=== PATIENT | male | born 1970 | race Two or more races ===

== ENCOUNTER → 2022-08-16 09:00 | Outpatient (BNVA) | payer OTHER, SELFPAY | PROVIDERS: PCP Registered Nurse; Visit Provider Internal Medicine Cardiovascular Disease | DX: R07.9 Chest pain, unspecified (principal); R06.09 Other forms of dyspnea; E78.5 Hyperlipidemia, unspecified | CPT/HCPCS: 93005; 99202 ==

== ENCOUNTER → 2022-08-29 08:12 | Outpatient (REF) | payer OTHER, SELFPAY ==
--- NOTE | 2022-08-29 08:15 | CA_ITS ---
Transthoracic Echocardiogram Patient (Last, First, Middle): Reggie Batista, Gender: Male Date of : 1970 Age: 52 Procedure Date: 08/29/2022 Procedure Type: Transthoracic Echocardiogram Location: OP Height: 177.8 cm Weight: 128.82 kg BSA: 2.42 m2 Heart Rate: 79 bpm BP: 145 / 85 mmHg Screen Printer Helper: MIKA Garcia MD: Manuel Martinez MD Geography Professor: Manuel Martinez MD Symptoms: R06.09 - Other forms of dyspnea Study Quality: Fair/Contrast ECG Rhythm: Sinus Conclusions: - Normal left ventricular size and systolic function. There is mildly increased left ventricular wall thickness. The visually estimated ejection fraction is between 65-70%. - Diastolic function is normal for age. - Normal right ventricular cavity size and systolic function. - There is mild dilatation of the sinuses of Valsalva measuring 4.00 cm and mild dilatation of the ascending aorta measuring 3.60 cm. Findings Procedure Information Contrast agent, definity, is being given per protocol without apparent complications. Left Ventricle Normal left ventricular size and systolic function. There is mildly increased left ventricular wall thickness. The visually estimated ejection fraction is between 65-70%. There is no evidence of regional wall motion abnormalities. Diastolic function is normal for age. Right Ventricle Normal right ventricular cavity size and systolic function. Atria The left atrium is normal in size. The right atrium is normal in size. Aortic Valve Normal aortic valve structure and function. There is no aortic valve stenosis. There is no aortic valve regurgitation. Mitral Valve The mitral valve appears normal. There is no mitral valve regurgitation. There is no mitral valve stenosis. Pulmonic Valve The pulmonic valve is likely normal. Tricuspid Valve Normal tricuspid valve structure and function. There is no tricuspid valve regurgitation. Normal right atrial pressure. There is no evidence of pulmonary hypertension. Great Vessels There is mild dilatation of the sinuses of Valsalva measuring 4.00 cm and mild dilatation of the ascending aorta measuring 3.60 cm. The visualized portions of the pulmonary artery and branches are normal. Venous The inferior vena cava is normal in size and collapses greater than 50% with inspiration. Pericardium/Pleural There is no evidence of pericardial effusion. Prior Study Comparison No prior study available for comparison. Measurements 2D Linear Measurements IVSd: 1.04 0.6-0.9/0.6-1.0 cm LVIDd: 4.75 3.9-5.3/4.2-5.9 cm LVIDd Index: 1.96 2.4-3.2/2.2-3.1 cm/m2 LVIDs: 2.86 2.0-3.6 cm LVPWd: 1.20 0.7-1.1 cm LA Diam: 3.80 2.7-3.8/3.0-4.0 cm LAIDs Index: 1.57 1.5-2.3 cm/m2 LV Mass: 243.73 67-162/88-224 g LV Mass Index: 100.72 43-95/49-115 g/m2 LVOT Diam: 2.20 3.0+(-)1.3 cm 2D Systolic Function EF 4C: 74.30 >55% EF 2C: 75.00 >55% EF BiP: 74.90 >55% Mitral Valve MV Pk E: 0.67 MV PK A: 0.73 MV Decel Time: 188.00 E/A: 0.90 E'Lateral: 10.30 E'Medial: 10.90 E/E' Med: 6.20 E/E' Lat: 6.50 PHT: 55.00 MVA PHT: 4.00 Decel [place]: 3.58 Aortic Valve AoV Pk Tehan: 1.19 AoV Mn Ethan: 0.83 AoV VTI: 0.23 AoV Pk Grad: 6.00 Aov Mn Grad: 3.00 REA Cont.VTI: 3.20 LVOT LVOT Pk Ethan: 0.99 LVOT Mn Ethan: 0.72 LVOT VTI: 0.19 LVOT Pk Grad: 4.00 LVOT Mn Grad: 2.00 LVOT Diam: 2.20 LVOT Area: 3.80 Diastolic Function MV Pk E: 0.67 MV Pk A: 0.73 E/A: 0.90 E'Medial: 10.90 E/E' Med: 6.20 E' Laterial: 10.30 E/E' Lat: 6.50 Right Ventricle TAPSE (mm): 19.80 TVS' Ethan: 14.70 Great Vessels Aorta Sinus of Valsalva: 4.00 2.0-3.5 cm Ao Asc: 3.60 2.1-3.4 cm Pulmonary Valve PV Pk Ethan: 1.09 Peak PV Grad: 5.00 Updated in Other Vendor System with Status of Final Manuel Martinez MD electronically signed on 08/31/2022 10:51:34 AM with status of Final
--- NOTE | 2022-08-29 08:15 | CA_ITS ---
Acquisition Time: 2022-08-29 09:53:20 Total Exercise Time: 00:06:36 Test Indications: SOB Medications: SEE H Protocol: JHONY Max HR: 164 BPM 97% of Pred: 168 BPM Max BP: 208/072 mmHG Max Work Load: 7.9 METS Exercise stress test with exercise 6 min 36 sec of Jhony protocol, achieving 96% MPHR, with moderate sob, no chest discomfort, with isolated PVCs and tow ventricular cuplets noted in stage 3 and early recovery, with hypertensive response to exercise with max BP 208/72, without EKG changes meeting criteria for ischemia. In recovery his sob resolved and BP returned to near baseline 144/78. Test reviewed with Dr Martinez. Referred By: Manuel Martinez Overread By: JESSICA TATE
== END ==
LOC: HO.CARD 08:12
PROVIDERS: Visit Provider Internal Medicine Cardiovascular Disease
DX: R07.9 Chest pain, unspecified (principal); R06.09 Other forms of dyspnea
CPT/HCPCS: 93017; 93306; Q9957

== ENCOUNTER 2022-11-29 14:53 | Outpatient (AMB) | payer OTHER, SELFPAY ==
--- NOTE | 2022-11-29 14:59 | MHC.OFFVIS ---
Intake Vital Signs 11/29/22 15:00 Height 5 ft 10 in Weight 282 lb 3.067 oz BMI 40.5 BP 124/84 Blood Pressure Location Lt brachial Position Sitting Pulse 93 Pulse Source Pulse Oximeter Intake Visit Reasons: f/up testing Intake Note: Follow up after recent testing. Senior Strategy Manager Required: No Accompanied by: Self / Same As Patient Allergies aspirin Adverse Reaction (Severe, Verified 11/29/22 15:01) Hives cortisone Adverse Reaction (Severe, Verified 11/29/22 15:01) Hives Medication List - Last Reconciled 11/29/22 by Manuel Martinez MD atorvastatin 40 mg PO BEDTIME empagliflozin (Jardiance) 25 mg PO QAM glipizide ER 10 mg PO QAM lisinopril-hydrochlorothiazide 20-25 mg 1 tab PO DAILY metformin ER 1,000 mg PO BID omega-3 acid ethyl esters (Lovaza) 1 cap PO DAILY HPI HPI Comments History of Present Illness Details 52-year-old gentleman who is here for hypertriglyceridemia. He was given rosuvastatin and developed vertigo. He is saying he did not have any viral illness before the vertigo and clearly he stop the statin and started feeling better. His triglyceride levels are 1126. LDL could not be calculated because of elevated triglycerides. He also has dyspnea on exertion and chest discomfort ongoing for some time. He is saying that this happened after he developed COVID-19 infection. He is saying when he is doing activities he feels dull pressure-like feeling in his chest. He does have history of asthma. He also gets shortness of breath with activities. He is diabetic, has hypertension and hyperlipidemia. He said at 1 stage he was told that he has an enlarged heart due to elevated blood pressures. He is saying that this was diagnosed based on echocardiography approximately 4 years ago. At that time was not on any medications but has been on medications now with controlled blood pressures. Family history positive for coronary disease and cardiomyopathy. 11/29/22: He is here for follow-up. He has started exercising on treadmill and has been doing well. He had stress testing done where he had hypertensive response to exercise. He has known history of hypertension has been taking lisinopril hydrochlorothiazide 20-25 mg daily. He also has hypertriglyceridemia which is likely genetic and was started on omega-3 acid and has been on atorvastatin 40 mg daily. He has not had any fasting lipid panel recently. He has echocardiogram is shown mild dilation of ascending aorta. [facility] Surgical History No pertinent past surgical history Family History Mother Parkinsons Vascular disease Emphysema lung Father Gastric polyps Brother Hypertension Hyperglycemia Brother Diabetes Social History Alcohol intake: never Patient Tobacco Use Status: Former Tobacco user Quit Date: 2002 Years Smoked: 10 +/- Review of Systems Const Denies weakness ENT Denies dizziness Card Denies chest pain, Denies chest pain with activity, Denies syncope, Denies rapid heart rate, Denies pedal edema, Denies edema, Denies leg edema, Denies lightheadedness, Denies palpitations, Denies dyspnea, Denies dyspnea on exertion and Denies orthopnea Resp Denies cough, Denies dyspnea and Denies dyspnea on exertion GI Denies hematochezia and Denies change in stool character Musc Denies abnormal gait, Denies muscle cramps, Denies muscle weakness, Denies numbness, Denies radiating pain into limb and Denies tingling Neuro Denies abnormal gait, Denies dizziness, Denies syncope, Denies numbness, Denies tingling and Denies weakness Endo Denies palpitations Physical Exam Vital Signs: Last Vital Signs Pulse 93 11/29/22 15:00 BP 124/84 11/29/22 15:00 BMI result Body Mass Index 40.5 GENERAL APPEARANCE: in no acute distress, pleasant. NECK: no carotid bruit, no jugular venous distention. SKIN: no suspicious lesions, warm and dry. HEART: no murmurs, regular rate and rhythm. LUNGS: clear to auscultation bilaterally. ABDOMEN: soft, nontender. EXTREMITIES: no edema. PERIPHERAL PULSES: equal. NEUROLOGIC: No gross deficits, AAO X 3 Assessment & Plan Assessment & Plan (1) Essential hypertension: Code(s): I10 - Essential (primary) hypertension (2) Hyperlipidemia: Code(s): E78.5 - Hyperlipidemia, unspecified (3) Mild dilation of ascending aorta: Code(s): I77.810 - Thoracic aortic ectasia Plan Pleasant 52-year-old gentleman who is here for follow-up. He has background history of hypertension and hyperlipidemia. He was experiencing some chest discomfort underwent stress testing. He had hypertensive response to exercise during stress test. Did not have any chest discomfort or EKG changes. His blood pressure currently appears to be okay. I have advised him start low-dose beta-darlin and will start carvedilol 3.125 mg twice a day. He has mild dilation of ascending aorta. This is commonly seen with tobacco abuse, hypertension and hyperlipidemia. He has hyperlipidemia and currently is on atorvastatin and omega-3 fatty acids. We will check a fasting lipid panel. He will have periodic monitoring of the ascending aorta to make sure it is not enlarging further. Thank you for allowing me to participate in the care of your patient. Please feel free to contact me if you have any questions. Orders: Orders Lipid Panel Today E78.5 - Hyperlipidemia, unspecified Medications: New carvedilol must administer with a meal/food 3.125 mg PO BID 90 tabs 3RF I10 - Essential (primary) hypertension Coding Level of Care Code Est Pt Level 4 (44418) Diagnoses Essential hypertension I10 Hyperlipidemia E78.5 Mild dilation of ascending aorta I77.810
[2022-11-29 15:00] VITALS: BP 124/84; PULSE 93; BMI 40.5
== END 2022-11-29 16:00 | disposition home or self-care (01) ==
PROVIDERS: Visit Provider Internal Medicine Cardiovascular Disease
DX: I10 Essential (primary) hypertension (principal); E78.5 Hyperlipidemia, unspecified; I77.810 Thoracic aortic ectasia
CPT/HCPCS: 99214

== ENCOUNTER → 2022-11-29 14:53 | Outpatient (BNVA) | payer OTHER, SELFPAY | PROVIDERS: Visit Provider Internal Medicine Cardiovascular Disease | DX: I77.810 Thoracic aortic ectasia (principal); I10 Essential (primary) hypertension; E78.5 Hyperlipidemia, unspecified | CPT/HCPCS: 99212 ==

== ENCOUNTER 2023-02-19 10:02 | Emergency (ER) | payer OTHER, SELFPAY ==
[2023-02-19 10:06] VITALS: BP 145/83; PULSE 76; RESP 20; TEMP 35.9; O2SAT 97; BMI 40.8
--- NOTE | 2023-02-19 10:47 | ECG_ITS ---
Test Reason : dizziness Blood Pressure : / mmHG Vent. Rate : 072 BPM Atrial Rate : 072 BPM P-R Int : 156 ms QRS Dur : 082 ms QT Int : 374 ms P-R-T Axes : 045 -12 041 degrees QTc Int : 409 ms Normal sinus rhythm Possible Left atrial enlargement Borderline ECG No previous ECGs available Referred By: Generic ED Physician Electronically Signed By:REECE GREGORY MD
[2023-02-19 11:37] LABS: MANUAL DIFF FLAG NO
--- NOTE | 2023-02-19 11:37 | ED.NAVMDI ---
HPI - Nausea/Vomiting/Diarrhea General Chief complaint: Nausea/Vomiting/Diarrhea Stated complaint: l side pain Time Seen by Provider: 02/19/23 11:22 Source: patient and family Mode of arrival: ambulatory Limitations: no limitations History of Present Illness HPI Narrative: 53-year-old male came in for evaluation of nausea, vomiting, and diarrhea. Symptoms started 3 days ago after eating some food at home (no other family member ate from the food), symptoms started as nonbloody watery diarrhea, feeling nauseous but no vomiting, patient also been having a diffuse abdominal cramps, no other sick contacts, no recent travel, no fever, no chills, no dysuria, no frequency urination, no blood in the stool or the urine. No history of intra-abdominal surgery. Related Data Home Medications Medication Instructions Recorded Confirmed empagliflozin 25 mg tablet 25 mg PO QAM diabetes mellitus 08/16/22 11/29/22 (Jardiance) glipizide 10 mg tablet, extended 10 mg PO QAM diabetes mellitus 08/16/22 11/29/22 release 24 hr lisinopril 20 1 tab PO DAILY blood pressure 08/16/22 11/29/22 mg-hydrochlorothiazide 25 mg tablet metformin 500 mg tablet,extended 1,000 mg PO BID 08/16/22 11/29/22 release 24 hr Previous Rx's Medication Instructions Recorded atorvastatin 40 mg tablet 40 mg PO BEDTIME #30 tabs 08/16/22 omega-3 acid ethyl esters 1 gram 1 cap PO DAILY #60 caps 08/16/22 capsule (Lovaza) carvedilol 3.125 mg tablet 3.125 mg PO BID #90 tabs 11/29/22 Allergies Allergy/AdvReac Type Severity Reaction Status Date / Time aspirin AdvReac Severe Hives Verified 11/29/22 15:01 cortisone AdvReac Severe Hives Verified 11/29/22 15:01 Review of Systems Review of Systems: All other systems are reviewed and are negative Constitutional: Reports as per HPI and Reports no additional constitutional complaints Eyes: Reports as per HPI and Reports no additional eye complaints Reports system reviewed and no additional complaints, except as documented Cardiovascular: Reports as per HPI and Reports no additional cardiovascular complaints Respiratory: Reports as per HPI and Reports no additional respiratory complaints Gastrointestinal: Reports as per HPI and Reports no additional gastrointestinal complaints Genitourinary: Reports no additional female genitourinary complaints Musculoskeletal: Reports no additional musculoskeletal complaints Skin/Breast: Reports system reviewed and no additional complaints, except as docu Psychiatric: Reports no additional psychiatric complaints Endocrine: Reports no additional endocrine complaints Hematologic/Lymphatic: Reports no additional hematologic/lymphatic complaints Allergic/Immunologic: Reports no additional allergic/immunologic complaints Reports system reviewed and no additional complaints, except as documented and Reports Abnormal speech present [facility] Past Medical History Surgical History No pertinent past surgical history Family History Family History Mother Parkinsons Vascular disease Emphysema lung Father Gastric polyps Brother Hypertension Hyperglycemia Brother Diabetes Social History Social History Alcohol intake: never Patient Tobacco Use Status: Former Tobacco user Quit Date: 2002 Smoked: 10 +/- Advance Directives: No Advance Directives Information Provided: Yes Physical Exam Vital Signs: Vital Signs: Last Vital Signs Temp 96.6 F L 02/19/23 10:06 Pulse 80 02/19/23 11:50 Resp 18 02/19/23 11:50 BP 130/80 02/19/23 11:40 Pulse Ox 97 02/19/23 11:50 O2 Del Method Room Air 02/19/23 11:50 BMI result Body Mass Index 40.8 Vital signs have been reviewed and appear to be correct. Blood pressure elevated. Heart rate normal. Respiratory rate normal. Temperature normal. Oxygen saturation normal. Appearance: Alert. Oriented X3. No acute distress. Head: Normal external exam. Normocephalic. Atraumatic. No Nixon signs noted. No raccoon eyes noted Eyes: PERRLA. EOMI. Conjunctiva and sclera normal. Eyelids normal. ENT: TM's Normal. Pharynx normal. Uvula midline. Moist mucous membranes. No trismus noted. No drooling noted. No muffled voice noted. Neck: Normal inspection. Neck supple. FROM. No adenopathy. Thyroid Normal. No meningeal signs. No neck mass noted. CVS: Normal heart rate and rhythm. Heart sound normal. No murmurs noted. Pulses normal throughout. Respiratory: No respiratory distress. Painless inspiration. Breath sounds normal. No wheezes/rales/rhonchi noted. Chest nontender. No accessory muscle usage noted or decreased air movement noted. Abdomen: Soft and nontender. Bowel sounds normal in all 4 quadrants. No distention noted. No organomegaly noted. No visible injury noted. Back: No CVA tenderness. Full range of motion noted. Skin: Skin warm and dry. Normal skin color. Normal skin turgor. No rashes/lesions/lacerations noted. Extremities: No lower extremity edema. Extremities exhibit normal range of motion. Extremities nontender. Neuro: Oriented X 3. Cranial nerve exam: II-XII are grossly intact No motor deficit. No sensory deficit. Reflexes normal. Course Reevaluation(s) Reevaluation #1: Patient feels better with improvement of most of his symptoms, able to tolerate p.o. intake in the ED, no nausea, no vomiting, improvement of the left-sided abdominal pain. Labs are unremarkable, clinical exam and history is consistent with gastroenteritis. Patient was instructed to drink plenty of fluid start clear diet and advance as tolerated. Time: 13:39 Medications Administered Discontinued Medications Generic Name Dose Route Start Last Admin Trade Name Freq PRN Reason Stop Dose Admin Famotidine 20 mg 02/19/23 11:36 02/19/23 11:49 Famotidine/Pf 20 Mg/2 Ml Vial IVPUSH 02/19/23 11:37 20 mg ONCE ONE Administration Sodium Chloride 1,000 mls @ 999 mls/hr 02/19/23 11:36 02/19/23 11:50 Ns IV 02/19/23 12:36 999 mls/hr .Q1H1M ONE Administration Loperamide HCl 2 mg 02/19/23 11:37 02/19/23 11:48 Loperamide Hcl 2 Mg Capsule PO 02/19/23 11:38 2 mg ONCE ONE Administration Medical Decision Making Differential Diagnosis Differential Diagnoses: The differential diagnosis associated with the presentation includes (Severe anemia, electrolyte abnormality, UTI, food poisoning, gastroenteritis, colitis.) Admission/Observation Consideration of admission/observation: Escalation of care including admission/observation considered Lab Data MDM Lab Attestation statement: I reviewed the patient's lab results. 02/19/23 11:32 02/19/23 11:32 Labs: Lab Results 02/19/23 Range/Units 11:32 WBC 9.3 (4.8-10.8) X10*3/uL RBC 6.35 H (4.60-5.80) X10*6/uL Hgb 15.7 (14.0-18.0) g/dl Hct 49.6 (42.0-52.0) % MCV 78.1 L (80.0-98.0) fL MCH 24.7 L (27.0-33.0) pg MCHC 31.7 (31.0-36.0) g/dl RDW 17.2 H (11.0-16.0) % Plt Count 244 (160-400) X10*3/uL MPV 9.8 (9.4-12.4) fL Immature Gran % (Auto) 0.6 H (0.0-0.4) % Neut % (Auto) 74.9 H (45-73) % Lymph % (Auto) 18.6 L (20-40) % [place] % (Auto) 4.2 (2-11) % Eos % (Auto) 1.2 (0-4) % Baso % (Auto) 0.5 (0-2) % Lymph # (Auto) 1.7 (1.2-4.9) X10*3/uL [place] # (Auto) 0.4 (0.1-1.2) X10*3/uL Eos # (Auto) 0.1 (0.0-0.4) X10*3/uL Baso # (Auto) 0.1 (0.0-0.2) X10*3/uL Abs Immat Gran (auto) 0.06 H (0.00-0.03) X10*3/uL Absolute Neuts (auto) 7.0 (2.0-8.3) x10*3/uL Absolute Nucleated RBC 0.000 (0.0-0.012) X10*3/uL Nucleated RBC % (auto) 0.0 (0.0-0.2) /100WBC Sodium 134 L (135-145) mmol/L Potassium 4.0 (3.3-5.1) mmol/L Chloride 98 (96-108) mmol/L Carbon Dioxide 23 (22-29) mmol/L Anion Gap 17 (12-20) BUN 17 H (9-16) mg/dL Creatinine 1.01 (0.5-1.4) mg/dL Estim Creat Clear Calc 114.1 Estimated GFR > 60 Random Glucose 170 H (60-115) mg/dL Calcium 10.0 (8.4-10.2) mg/dL Total Bilirubin 1.2 H (0.0-1.0) mg/dL Direct Bilirubin 0.4 (0.0-0.5) mg/dL AST 24 (5-37) U/L ALT 52 H (0-40) U/L Alkaline Phosphatase 56 (39-117) U/L Total Protein 8.5 H (6.5-8.0) g/dL Albumin 4.7 (3.5-5.0) g/dL Lipase 28 (8-78) U/L Urine Color Yellow Urine Appearance Clear Urine pH 7.0 (5.0-9.0) Ur Specific [place] >= 1.030 H (1.005-1.025) Urine Protein Negative (Neg-Trace) mg/dL Urine Glucose (UA) >=1000 H (Negative) mg/dL Urine Ketones Trace (Negative) mg/dL Urine Blood Negative (Negative) Urine Nitrite Negative (Negative) Ur Leukocyte Esterase Negative (Negative) Urine RBC 0-2 (0-2) /HPF Urine WBC 0-5 (0-5) /HPF Ur Squamous Epith Cells 0-2 (0-2) /HPF Urine Bacteria None Seen (None Seen) Hyaline Casts 0-2 (0-2) /LPF Discharge Plan Discharge Clinical Impression: Gastroenteritis Patient Disposition: Home, Self-Care Instructions: Gastroenteritis (ED) Additional Instructions: Drink plenty of fluids, start with clear diet and advance as tolerated, seek immediate medical attention for fever, chills, worsening of pain or vomiting. Follow-up with your primary doctor in 2-3 days. Prescriptions: No Action lisinopril-hydrochlorothiazide 20-25 mg tablet 1 tab PO DAILY glipizide 10 mg tablet extended release 24hr 10 mg PO QAM metformin 500 mg tablet extended release 24 hr 1,000 mg PO BID Jardiance 25 mg tablet 25 mg PO QAM atorvastatin 40 mg tablet 40 mg PO BEDTIME Qty: 30 3RF omega-3 acid ethyl esters [Lovaza] 1 gram capsule 1 cap PO DAILY Qty: 60 3RF carvedilol 3.125 mg tablet 3.125 mg PO BID Qty: 90 3RF Rx Instructions: must administer with a meal/food
[2023-02-19 11:38] VITALS: BP 123/76; PULSE 70
[2023-02-19 11:39] VITALS: BP 126/76; PULSE 77
[2023-02-19 11:40] VITALS: BP 130/80; PULSE 80
[2023-02-19 11:44] LABS: Appearance Urine Clear; Color Urine Yellow; Glucose Urine UA >=1000 mg/dL (Negative); Leukocyte Esterase Urine Negative (Negative); Nitrite Urine Negative (Negative); Specific Gravity - Urine >= 1.030 (1.005-1.025); UMIC TRIGGER UACC YES; Urine Blood Negative (Negative); Urine Ketones Trace mg/dL (Negative); Urine Protein Negative (Neg-Trace)
[2023-02-19] MEDS: Loperamide HCl 2 MG CAPSULE PO (11:48)
[2023-02-19 11:49] LABS: Basophils Absolute Auto 0.1 X10*3/uL (0.0-0.2); Basophils Percent Auto 0.5 % (0-2); Eosinophils Absolute Auto 0.1 X10*3/uL (0.0-0.4); Eosinophils Percent Auto 1.2 % (0-4); Hematocrit 49.6 % (42.0-52.0); Hemoglobin 15.7 g/dl (14.0-18.0); Imm Gran Abs Auto 0.06 X10*3/uL (0.00-0.03); Imm Gran Pct Auto 0.6 % (0.0-0.4); Lymphocytes Absolute Auto 1.7 X10*3/uL (1.2-4.9); Lymphocytes Percent Auto 18.6 % (20-40); Mean Corpuscular HGB Conc 31.7 g/dl (31.0-36.0); Mean Corpuscular Hemoglobin 24.7 pg (27.0-33.0); Mean Corpuscular Volume 78.1 fL (80.0-98.0); Mean Platelet Volume 9.8 fL (9.4-12.4); Monocytes Absolute Auto 0.4 X10*3/uL (0.1-1.2); Monocytes Percent Auto 4.2 % (2-11); Neutrophils Percent Auto 74.9 % (45-73); Platelet Count 244 X10*3/uL (160-400); Red Blood Count 6.35 X10*6/uL (4.60-5.80); Red Cell Distribution Width 17.2 % (11.0-16.0); White Blood Count 9.3 X10*3/uL (4.8-10.8)
[2023-02-19] MEDS: Famotidine/PF 20 MG/2 ML VIAL IVPUSH (11:49)
[2023-02-19 11:50] VITALS: PULSE 80; RESP 18; O2SAT 97
[2023-02-19] MEDS: 0.9 % Sodium Chloride 1,000 ML 999 ML IV (11:50)
[2023-02-19 12:00] LABS: Alanine Aminotransferase 52 U/L (0-40); Albumin Level 4.7 g/dL (3.5-5.0); Alkaline Phosphatase 56 U/L (39-117); Anion Gap 17 (12-20); Aspartate Amino Transferase 24 U/L (5-37); Bilirubin Direct 0.4 mg/dL (0.0-0.5); Bilirubin Total 1.2 mg/dL (0.0-1.0); Blood Urea Nitrogen 17 mg/dL (9-16); Carbon Dioxide 23 mmol/L (22-29); Chloride 98 mmol/L (96-108); Creatinine Clr Calc Pharmacy 114.1; Estimated Glomerular Filt Rate > 60; Glucose Random 170 mg/dL (60-115); Lipase 28 U/L (8-78); Sodium 134 mmol/L (135-145); Total Protein 8.5 g/dL (6.5-8.0)
[2023-02-19 12:19] LABS: Bacteria Urine None Seen (None Seen); Hyaline Casts Urine 0-2 /LPF (0-2); RBC Urine 0-2 /HPF (0-2); Squamous Epithelial Cell Urine 0-2 /HPF (0-2); WBC Urine 0-5 /HPF (0-5)
[2023-02-19 14:02] VITALS: BP 145/76; PULSE 77; RESP 19; O2SAT 98
== END 2023-02-19 14:03 | disposition home or self-care (01) ==
PROVIDERS: Emergency Provider Emergency Medicine
DX: K52.9 Noninfective gastroenteritis and colitis, unspecified (principal); R11.2 Nausea with vomiting, unspecified; R42 Dizziness and giddiness; Z79.899 Other long term (current) drug therapy
CPT/HCPCS: 36415; 80053; 80076; 81001; 82248; 83690; 85025; 93005; 96374; 99284

== ENCOUNTER 2023-04-04 14:42 | Outpatient (AMB) | payer OTHER, SELFPAY ==
--- NOTE | 2023-04-04 14:50 | A.OFFVIS_ITS ---
Intake Vital Signs 04/04/23 14:51 Height 5 ft 10 in Weight 286 lb 9.615 oz BMI 41.1 BP 140/80 H Blood Pressure Location Lt brachial Position Sitting Pulse 85 Pulse Source Pulse Oximeter Intake Visit Reasons: 4 mth fu after lipids Intake Note: 4 month fu/ patients feels fine. Accompanied by: Self / Same As Patient Allergies aspirin Adverse Reaction (Severe, Verified 04/04/23 14:58) Hives cortisone Adverse Reaction (Severe, Verified 04/04/23 14:58) Hives Medication List - Last Reconciled 04/04/23 by Manuel Martinez MD atorvastatin 40 mg PO BEDTIME 90 days carvedilol 3.125 mg PO BID empagliflozin (Jardiance) 25 mg PO QAM glipizide ER 10 mg PO QAM lisinopril-hydrochlorothiazide 20-25 mg 1 tab PO DAILY metformin ER 1,000 mg PO BID omega-3 acid ethyl esters (Lovaza) 1 cap PO DAILY HPI HPI Comments History of Present Illness0 Details 53-year-old gentleman who is here for hy pertriglyceridemia. He was given rosuvastatin and developed vertigo. He is saying he did not have any viral illness before the vertigo and clearly he stop the statin and started feeling better. His triglyceride levels are 1126. LDL could not be calculated because of elevated triglycerides. He also has dyspnea on exertion and chest discomfort ongoing for some time. He is saying that this happened after he developed COVID-19 infection. He is saying when he is doing activities he feels dull pressure-like feeling in his chest. He does have history of asthma. He also gets shortness of breath with activities. He is diabetic, has hypertension and hyperlipidemia. He said at 1 stage he was told that he has an enlarged heart due to elevated blood pressures. He is saying that this was diagnosed based on echocardiography approximately 4 years ago. At that time was not on any medications but has been on medications now with controlled blood pressures. Family history positive for coronary disease and cardiomyopathy. 11/29/22: He is here for follow-up. He has started exercising on treadmill and has been doing well. He had stress testing done where he had hypertensive response to exercise. He has known history of hypertension has been taking lisinopril hydrochlorothiazide 20-25 mg daily. He also has hypertriglyceridemia which is likely genetic and was started on omega-3 acid and has been on atorvastatin 40 mg daily. He has not had any fasting lipid panel recently. He has echocardiogram is shown mild dilation of ascending aorta. 04/04/2023: He returns for follow-up. Nhung muniz has been doing well. No chest pain or shortness of breath. Blood pressure is mildly elevated. He has been taking medication regularly. On last visit we referred him for cholesterol testing but he has not done that because he was sick. [facility] Surgical History No pertinent past surgical history Family History Mother Parkinsons Vascular disease Emphysema lung Father Gastric polyps Brother Hypertension Hyperglycemia Brother Diabetes Social History Alcohol intake: never Patient Tobacco Use Status: Former Tobacco user Quit Date: 2002 Years Smoked: 10 +/- Review of Systems Const Reports chills, Reports fatigue, Reports fever(s), Reports frequent falls, Reports weakness, Reports weight gain and Reports weight loss ENT Reports dizziness Card Reports chest pain, Reports leg edema, Reports lightheadedness, Reports palpitations, Reports dyspnea and Reports dyspnea on exertion Resp Reports cough, Reports dyspnea and Reports dyspnea on exertion GI Reports hematochezia Musc Reports abnormal gait, Reports muscle weakness, Reports numbness, Reports radiating pain into limb and Reports tingling Neuro Reports abnormal gait, Reports dizziness, Reports frequent falls, Reports numbness, Reports tingling and Reports weakness Endo Reports fatigue and Reports palpitations Physical Exam Vital Signs: Last Vital Signs Pulse 85 04/04/23 14:51 BP 140/80 H 04/04/23 14:51 BMI result Body Mass Index 41.1 GENERAL APPEARANCE: in no acute distress, pleasant. NECK: no carotid bruit, no jugular venous distention. SKIN: no suspicious lesions, warm and dry. HEART: no murmurs, regular rate and rhythm. LUNGS: clear to auscultation bilaterally. ABDOMEN: soft, nontender. EXTREMITIES: no edema. PERIPHERAL PULSES: equal. NEUROLOGIC: No gross deficits, AAO X 3 Assessment & Plan Assessment & Plan (1) Mild dilation of ascending aorta: Code(s): I77.810 - Thoracic aortic ectasia (2) Essential hypertension: Code(s): I10 - Essential (primary) hypertension (3) Hyperlipidemia: Code(s): E78.5 - Hyperlipidemia, unspecified Plan Pleasant 53-year-old gentleman is here for follow-up. He has diabetes and is currently taking metformin, glipizide and empagliflozin. Is on atorvastatin 40 mg daily as well as omega-3 fatty acids. He was advised to do a fasting lipid panel which she has not done and will be getting it done in the next few days. Blood pressure is elevated and increasing the carvedilol to 6.25 mg twice a day. He is already taking lisinopril and hydrochlorothiazide combination 20-25 mg. He will see us back in 4 months. Thank you for allowing me to participate in the care of your patient. Please feel free to contact me if you have any questions. Medications: New carvedilol must administer with a meal/food 6.25 mg PO BID 120 tabs 3RF Discontinued carvedilol must administer with a meal/food Discontinued Reason: None 3.125 mg PO BID 90 tabs 3RF I10 - Essential (primary) hypertension Coding Level of Care Code Est Pt Level 4 (85508) Diagnoses Mild dilation of ascending aorta I77.810 Essential hypertension I10 Hyperlipidemia E78.5
[2023-04-04 14:51] VITALS: BP 140/80; PULSE 85; BMI 41.1
== END 2023-04-04 15:11 | disposition home or self-care (01) ==
PROVIDERS: PCP Registered Nurse; Visit Provider Internal Medicine Cardiovascular Disease
DX: I77.810 Thoracic aortic ectasia (principal); I10 Essential (primary) hypertension; E78.5 Hyperlipidemia, unspecified
CPT/HCPCS: 99214

== ENCOUNTER → 2023-04-04 14:42 | Outpatient (BNVA) | payer OTHER, SELFPAY | PROVIDERS: PCP Registered Nurse; Visit Provider Internal Medicine Cardiovascular Disease | DX: I77.810 Thoracic aortic ectasia (principal); I10 Essential (primary) hypertension; E78.5 Hyperlipidemia, unspecified | CPT/HCPCS: 99212 ==

== ENCOUNTER 2023-04-24 07:57 | Outpatient (REF) | payer OTHER, SELFPAY ==
[2023-04-24 09:05] LABS: Cholesterol 148 mg/dL (<200); HDL Cholesterol 26 mg/dL (>40); Triglycerides 474 mg/dL (<150)
== END 2023-04-24 07:58 | disposition home or self-care (01) ==
LOC: HO.LAB 07:57
PROVIDERS: PCP Registered Nurse; Visit Provider Internal Medicine Cardiovascular Disease
DX: E78.5 Hyperlipidemia, unspecified (principal)
CPT/HCPCS: 36415; 80061

== ENCOUNTER 2023-09-27 09:49 | Outpatient (REF) | payer OTHER, SELFPAY ==
[2023-09-27 11:15] LABS: Alanine Aminotransferase 41 U/L (0-40); Albumin Level 4.4 g/dL (3.5-5.0); Alkaline Phosphatase 63 U/L (39-117); Anion Gap 15 (12-20); Aspartate Amino Transferase 26 U/L (5-37); Bilirubin Total 0.9 mg/dL (0.0-1.0); Blood Urea Nitrogen 17 mg/dL (9-16); Calcium 9.4 mg/dL (8.4-10.2); Carbon Dioxide 28 mmol/L (22-29); Chloride 98 mmol/L (96-108); Estimated Glomerular Filt Rate > 60; Glucose Random 183 mg/dL (60-115); Potassium 4.2 mmol/L (3.3-5.1); Sodium 137 mmol/L (135-145); Total Protein 7.8 g/dL (6.5-8.0)
[2023-09-27 11:33] LABS: Prostate Specific Antigen Scr 1.13 ng/mL (<0.05-4.0)
[2023-09-28 20:48] LABS: LDL Cholesterol Direct 40 mg/dL (<100)
== END 2023-09-27 09:50 | disposition home or self-care (01) ==
LOC: HO.LAB 09:49
PROVIDERS: Absent Provider Internal Medicine Cardiovascular Disease; PCP Registered Nurse; Visit Provider Registered Nurse
DX: Z00.00 Encounter for general adult medical examination without abnormal findings (principal); E78.5 Hyperlipidemia, unspecified
CPT/HCPCS: 36415; 80053; 83721; 84153

== ENCOUNTER 2023-10-03 09:27 | Outpatient (AMB) | payer OTHER, SELFPAY ==
[2023-10-03 09:31] VITALS: BP 130/70; PULSE 85; O2SAT 97; BMI 40.8
--- NOTE | 2023-10-03 09:31 | MHC.OFFVIS ---
Vital Signs 10/03/23 09:31 Height 5 ft 10 in Weight 284 lb 6.341 oz BMI 40.8 BP 130/70 Blood Pressure Location Lt brachial Position Sitting Pulse 85 Pulse Source Pulse Oximeter Pulse Oximetry (%) 97 Intake Visit Reasons: 4 mth f/up Senior Account Manager Required: No Accompanied by: Self / Same As Patient Allergies aspirin Adverse Reaction (Severe, Verified 04/04/23 14:58) Hives cortisone Adverse Reaction (Severe, Verified 04/04/23 14:58) Hives Medication List - Last Reconciled 10/03/23 by Manuel Martinez MD atorvastatin 40 mg PO BEDTIME 90 days carvedilol 6.25 mg PO BID empagliflozin (Jardiance) 25 mg PO QAM glipizide ER 10 mg PO QAM lisinopril-hydrochlorothiazide 20-25 mg 1 tab PO DAILY metformin ER 1,000 mg PO BID omega-3 acid ethyl esters 1 cap PO DAILY HPI Comments Details: 53-year-old gentleman who is here for hypertriglyceridemia. He was given rosuvastatin and developed vertigo. He is saying he did not have any viral illness before the vertigo and clearly he stop the statin and started feeling better. His triglyceride levels are 1126. LDL could not be calculated because of elevated triglycerides. He also has dyspnea on exertion and chest discomfort ongoing for some time. He is saying that this happened after he developed COVID-19 infection. He is saying when he is doing activities he feels dull pressure-like feeling in his chest. He does have history of asthma. He also gets shortness of breath with activities. He is diabetic, has hypertension and hyperlipidemia. He said at 1 stage he was told that he has an enlarged heart due to elevated blood pressures. He is saying that this was diagnosed based on echocardiography approximately 4 years ago. At that time was not on any medications but has been on medications now with controlled blood pressures. Family history positive for coronary disease and cardiomyopathy. 11/29/22: He is here for follow-up. He has started exercising on treadmill and has been doing well. He had stress testing done where he had hypertensive response to exercise. He has known history of hypertension has been taking lisinopril hydrochlorothiazide 20-25 mg daily. He also has hypertriglyceridemia which is likely genetic and was started on omega-3 acid and has been on atorvastatin 40 mg daily. He has not had any fasting lipid panel recently. He has echocardiogram is shown mild dilation of ascending aorta. 04/04/2023: He returns for follow-up. He has been doing well. No chest pain or shortness of breath. Blood pressure is mildly elevated. He has been taking medication regularly. On last visit we referred him for cholesterol testing but he has not done that because he was sick. 10/03/23: He is here for follow-up. He has been doing well. He said he has changed his job and is under less stress and is sleeping better. Blood pressure is better controlled. Denying any chest discomfort shortness of breath. His LDL cholesterol is 40. His triglycerides were elevated at 474. He has been walking. I have advised him to cut back on sugars in his diet which she already is planning to. [facility] Surgical History No pertinent past surgical history Family History Mother Parkinsons Vascular disease Emphysema lung Father Gastric polyps Brother Hypertension Hyperglycemia Brother Diabetes Social History Alcohol intake: never Patient Tobacco Use Status: Former Tobacco user Quit Date: 2002 Years Smoked: 10 +/- Physical Exam Vital Signs: Last Vital Signs Pulse 85 10/03/23 09:31 BP 130/70 10/03/23 09:31 Pulse Ox 97 10/03/23 09:31 BMI result Body Mass Index 40.8 GENERAL APPEARANCE: in no acute distress, pleasant. NECK: no carotid bruit, no jugular venous distention. SKIN: no suspicious lesions, warm and dry. HEART: no murmurs, regular rate and rhythm. LUNGS: clear to auscultation bilaterally. ABDOMEN: soft, nontender. EXTREMITIES: no edema. PERIPHERAL PULSES: equal. NEUROLOGIC: No gross deficits, AAO X 3 Assessment & Plan Assessment & Plan (1) Mild dilation of ascending aorta: Code(s): I77.810 - Thoracic aortic ectasia Category: Medical (2) Essential hypertension: Code(s): I10 - Essential (primary) hypertension Category: Medical (3) Hyperlipidemia: Code(s): E78.5 - Hyperlipidemia, unspecified Category: Medical Plan Pleasant 53-year-old gentleman is here for follow-up. He has diabetes and is currently taking metformin, glipizide and empagliflozin. He is on atorvastatin 40 mg daily as well as omega-3 fatty acids. His LDL cholesterol is 40. Triglycerides were elevated at 474. He is changing his diet and trying to exercise more regularly. We will repeat a fasting lipid panel on him in 2 months. He will see us back in 4 months. Thank you for allowing me to participate in the care of your patient. Please feel free to contact me if you have any questions. Orders: Orders Lipid Panel Today E78.5 - Hyperlipidemia, unspecified Coding Level of Care Code Est Pt Level 4 (96231) Diagnoses Mild dilation of ascending aorta I77.810 Essential hypertension I10 Hyperlipidemia E78.5
== END 2023-10-03 09:49 | disposition home or self-care (01) ==
PROVIDERS: PCP Registered Nurse; Visit Provider Internal Medicine Cardiovascular Disease
DX: I77.810 Thoracic aortic ectasia (principal); I10 Essential (primary) hypertension; E78.5 Hyperlipidemia, unspecified
CPT/HCPCS: 99214

== ENCOUNTER → 2023-10-03 09:27 | Outpatient (BNVA) | payer OTHER, SELFPAY | PROVIDERS: PCP Registered Nurse; Visit Provider Internal Medicine Cardiovascular Disease | DX: I77.810 Thoracic aortic ectasia (principal); I10 Essential (primary) hypertension; E78.5 Hyperlipidemia, unspecified | CPT/HCPCS: 99212 ==

== ENCOUNTER 2023-12-04 10:02 | Outpatient (REF) | payer OTHER, SELFPAY ==
[2023-12-04 11:25] LABS: Cholesterol 176 mg/dL (<200); HDL Cholesterol 27 mg/dL (>40); Triglycerides 667 mg/dL (<150)
== END 2023-12-04 10:03 | disposition home or self-care (01) ==
LOC: HO.LAB 10:02
PROVIDERS: Visit Provider Internal Medicine Cardiovascular Disease
DX: E78.5 Hyperlipidemia, unspecified (principal)
CPT/HCPCS: 36415; 80061

== ENCOUNTER 2023-12-19 10:56 | Outpatient (AMB) | payer OTHER, SELFPAY ==
--- NOTE | 2023-12-19 10:58 | MHC.OFFVIS ---
Vital Signs 12/19/23 10:59 Height 5 ft 10 in Weight 284 lb 13.396 oz BMI 40.9 BP 156/74 H Blood Pressure Location Rt brachial Position Sitting Pulse 82 Pulse Source Pulse Oximeter Pulse Oximetry (%) 97 Oxygen Delivery Method Room Air Intake Visit Reasons: Colonoscopy Screening Intake Note: Reggie presents in office today for a scheduled colo s/p scrn CC; Family hx of polyps noted. Pt reports previous hx of colo approximately 5 years ago [facility]. Pt denies any current sx or concerns. Mobile Solutions Architect Required: No Allergies aspirin Adverse Reaction (Severe, Verified 12/19/23 10:59) Hives cortisone Adverse Reaction (Severe, Verified 12/19/23 10:59) Hives HPI HPI Colonoscopy Screening: Details: 53 year old? male with past medical history of hypercholesteremia, diabetes, triglyceridemia, hypertension is here today for pre colonoscopy screening.? Patient was sent to us by his PCP.? Last colonoscopy more than 5 years ago at [facility]. Patient denies any gastrointestinal symptoms in the past or at present.? Denies any personal or family history of gastrointestinal disease, CRC.? Patient reports that his 1st colonoscopy about 15 years ago or so had precancerous polyp, last colonoscopy no polyps found. Patient's father also gets frequent colonoscopies with precancerous polyps. Patient reports occasional constipation. Denies history of difficulty with sedation or anesthesia in the past.? History of sleep apnea using CPAP every night.? Denies any history of cardiac, renal, pulmonary, or hepatic disease.?? No history of infectious? diseases like hepatitis A, B, C, HIV or tuberculosis.? Patient is not on any anticoagulation [facility] Surgical History Hx of colonoscopy (~2019) No pertinent past surgical history Family History Mother Parkinsons Vascular disease Emphysema lung Father Gastric polyps Brother Hypertension Hyperglycemia Brother Diabetes Social History Alcohol intake: never Patient Tobacco Use Status: Former Tobacco user Years Smoked: 10 +/- Review of Systems Const Denies weight gain and Denies weight loss ENT Reports no additional complaints, Denies dysphagia and Denies odynophagia Card Reports no additional complaints Resp Reports no additional complaints GI Denies abdominal pain, Denies belching, Denies melena, Denies bloating, Denies change in bowel habits, Reports constipation (Occasional), Denies dysphagia, Denies excessive flatus, Denies dyspepsia, Denies heartburn, Denies diarrhea, Denies loose stools, Denies nausea, Denies odynophagia and Denies vomiting Reports no additional complaints Musc Reports no additional complaints Neuro Reports no additional complaints Psych Reports no additional complaints Endo Reports no additional complaints Physical Exam Const General: healthy appearing and no acute distress Nutritional Appearance: obese Orientation/consciousness: patient oriented x3 Resp Effort & Inspection: normal respiratory effort, able to speak in complete sentences, no tracheal deviation and symmetric chest movement Auscultation: clear to auscultation bilaterally Cardio Rate: regular rate GI Inspection: Yes normal to inspection, No distended and Yes obesity Palpation (GI): Soft to palpation, not firm, nontender and No hepatosplenomegaly present Auscultation: normal bowel sounds General: Yes no CVA tenderness Back/Spine/Pelvis Back: no CVA tenderness Skin General skin exam: elasticity normal, turgor normal and dry skin Neuro General: patient oriented x3 Psych Appearance: grossly normal Mental Status: mental status grossly normal Assessment & Plan Assessment & Plan (1) Screen for colon cancer: Code(s): Z12.11 - Encounter for screening for malignant neoplasm of colon Plan Patient denies any GI, cardiac or respiratory symptoms.? Patient is following up with freelance court reporter his next visit is in January will ask for risk stratification before going for procedure. Denies any issues with anesthesia in the past.? Patient reports sleep apnea uses CPAP at night. No history infectious diseases in the past or present.? Not on any anticoagulation therapy.? No family or personal history of colon cancer.? Patient denies melena, unintentional weight loss or ribbon like stools.? Occasional blood in his stools, diagnosed with hemorrhoids in the past. Patient reports that happens when he is very constipated. Discussed at length the pre-procedure,? prep, diet & medications as well as what to expect prior, during and after the procedure.?? Stressed the importance of good bowel prep.? Recommended the use of Vaseline or Calmoseptine OTC & baby wipes with bowel movements to promote comfort.? ?Patient verbalizes understanding and agrees to plan of care.? He was given the opportunity to ask questions and all questions answered.? We will see him after the procedure.? Medications: New bisacodyl (Dulcolax (bisacodyl)) Start taking 2 tablet every night 7 days before the procedure and 1 day before procedure take 4 tablets at noon time followed by MiraLax prep 10 mg (2 x 5 mg) PO BEDTIME 16 tabs 0RF Z12.11 - Encounter for screening for malignant neoplasm of colon polyethylene glycol 3350 (Miralax) As directed by gastroenterology department at [facility] 238 grams PO ONCE 238 grams 0RF Z12.11 - Encounter for screening for malignant neoplasm of colon docusate sodium take every night 7-10 days before colonoscopy procedure 100 mg PO BEDTIME 10 caps 0RF Z12.11 - Encounter for screening for malignant neoplasm of colon Refilled omega-3 acid ethyl esters 1 cap PO BID 60 caps 6RF E78.5 - Hyperlipidemia, unspecified Coding Level of Care Code New Pt Level 3 (39907) Diagnoses Screen for colon cancer Z12.11 Time Spent (min) 40 Comment 30 minutes spent with patient and additional 10 minutes spent reviewing his records
[2023-12-19 10:59] VITALS: BP 156/74; PULSE 82; O2SAT 97; BMI 40.9
== END 2023-12-19 11:33 | disposition home or self-care (01) ==
PROVIDERS: PCP Registered Nurse; Visit Provider Nurse Practitioner Family
DX: Z12.11 Encounter for screening for malignant neoplasm of colon (principal); Z01.818 Encounter for other preprocedural examination
CPT/HCPCS: 99203

== ENCOUNTER → 2023-12-19 10:56 | Outpatient (BNVA) | payer OTHER, SELFPAY | PROVIDERS: PCP Registered Nurse; Visit Provider Nurse Practitioner Family | DX: Z01.818 Encounter for other preprocedural examination (principal) | CPT/HCPCS: 99202 ==

== ENCOUNTER 2024-01-15 08:59 | Outpatient (REF) | payer OTHER, SELFPAY ==
[2024-01-15 10:24] LABS: Cholesterol 145 mg/dL (<200); HDL Cholesterol 27 mg/dL (>40); LDL Cholesterol Calculated 41 mg/dL (<100); Triglycerides 389 mg/dL (<150)
== END 2024-01-15 09:00 | disposition home or self-care (01) ==
LOC: HO.LAB 08:59
PROVIDERS: PCP Registered Nurse; Visit Provider Internal Medicine Cardiovascular Disease
DX: I10 Essential (primary) hypertension (principal); I77.810 Thoracic aortic ectasia
CPT/HCPCS: 36415; 80061

== ENCOUNTER 2024-01-22 12:30 | Outpatient (REF) | payer OTHER, SELFPAY | END 2024-01-22 12:31 | disposition home or self-care (01) | LOC: HO.HHCLNP 12:30 | PROVIDERS: Visit Provider Internal Medicine | DX: J02.9 Acute pharyngitis, unspecified (principal) | CPT/HCPCS: 87070 ==

== ENCOUNTER 2024-01-30 12:56 | Outpatient (AMB) | payer OTHER, SELFPAY ==
--- NOTE | 2024-01-30 13:23 | A.OFFVIS_ITS ---
Vital Signs 01/30/24 13:24 Height 5 ft 10 in Weight 284 lb 6.341 oz BMI 40.8 BP 128/62 Blood Pressure Location Lt brachial Position Sitting Pulse 88 Pulse Source Monitor Intake Visit Reasons: 4mth/[id number]-[id number]-vw pt Allergies aspirin Adverse Reaction (Severe, Verified 12/19/23 10:59) Hives cortisone Adverse Reaction (Severe, Verified 12/19/23 10:59) Hives Medication List - Last Reconciled 01/30/24 by Mirtha Vidal NP atorvastatin 40 mg PO BEDTIME 90 days bisacodyl (Dulcolax (bisacodyl)) 10 mg (2 x 5 mg) PO BEDTIME carvedilol 6.25 mg PO BID docusate sodium 100 mg PO BEDTIME empagliflozin (Jardiance) 25 mg PO QAM glipizide ER 10 mg PO QAM lisinopril-hydrochlorothiazide 20-25 mg 1 tab PO DAILY metformin ER 1,000 mg PO BID omega-3 acid ethyl esters 2 caps PO BID polyethylene glycol 3350 (Miralax) 238 grams PO ONCE HPI Comments Details: 54-year-old male presents today for follow-up visit. He is preoperative care for colonoscopy. Has a history of hypertension, hyperlipidemia, and mild dilation of the ascending aorta. He reports over the last couple of weeks he has been walking on the treadmill flat and reduce sugar. He has noticed since then his shortness of breath has improved. He denies any chest discomforts. Blood pressures at home are typically 120s to 130 systolic and the diastolic in the 90s. [facility] Medical History (Updated 01/31/24 @ 10:56 by Mirtha Vidal NP) Pre-operative cardiovascular examination Surgical History Hx of colonoscopy (~2019) No pertinent past surgical history Family History Mother Parkinsons Vascular disease Emphysema lung Father Gastric polyps Brother Hypertension Hyperglycemia Brother Diabetes Social History Alcohol intake: never Patient Tobacco Use Status: Former Tobacco user Years Smoked: 10 +/- Review of Systems Const Denies weakness ENT Denies dizziness Card Denies chest pain, Denies chest pain with activity, Denies syncope, Denies rapid heart rate, Denies pedal edema, Denies edema, Denies leg edema, Denies lightheadedness, Denies palpitations, Denies dyspnea, Denies dyspnea on exertion and Denies orthopnea Resp Denies cough, Denies dyspnea and Denies dyspnea on exertion GI Denies hematochezia and Denies change in stool character Musc Denies abnormal gait, Denies muscle cramps, Denies muscle weakness, Denies numbness, Denies radiating pain into limb and Denies tingling Neuro Denies abnormal gait, Denies dizziness, Denies syncope, Denies numbness, Denies tingling and Denies weakness Endo Denies palpitations Physical Exam Vital Signs: Last Vital Signs Pulse 88 01/30/24 13:24 BP 128/62 01/30/24 13:24 BMI result Body Mass Index 40.8 Office Procedures EKG Details: EKG today. Normal sinus rhythm. Rate 88 beats per minute. QRS 78 milliseconds. QTC 428 milliseconds. [place] 154 milliseconds. [id number], Complete Assessment & Plan Assessment & Plan (1) Mild dilation of ascending aorta: Code(s): I77.810 - Thoracic aortic ectasia Category: Medical (2) Essential hypertension: Code(s): I10 - Essential (primary) hypertension Category: Medical (3) Pre-operative cardiovascular examination: Code(s): Z01.810 - Encounter for preprocedural cardiovascular examination Category: Medical Plan Echocardiogram back in August 2022 shows mild dilatation of the ascending aorta measuring 3.60 cm. We will repeat echocardiogram. Good blood pressure control advised. He is on carvedilol 6.25 mg lisinopril-hydrochlorothiazide 20-25 mg. In August 2022 patient had exercise stress test mental 7.9 with hypertensive response. We will repeat a check for any ischemic changes or hypertensive resp onse. Coding Level of Care Code Est Pt Level 4 (56567) Diagnoses Mild dilation of ascending aorta I77.810 Essential hypertension I10 Pre-operative cardiovascular examination Z01.810 CPT Codes EKG - CPT: 85386-[id number], Complete ([id number])
[2024-01-30 13:24] VITALS: BP 128/62; PULSE 88; BMI 40.8
== END 2024-01-30 14:05 | disposition home or self-care (01) ==
PROVIDERS: PCP Registered Nurse; Visit Provider Nurse Practitioner
DX: I77.810 Thoracic aortic ectasia (principal); I10 Essential (primary) hypertension; Z01.810 Encounter for preprocedural cardiovascular examination
CPT/HCPCS: 93010; 99214

== ENCOUNTER → 2024-01-30 12:56 | Outpatient (BNVA) | payer OTHER, SELFPAY | PROVIDERS: PCP Registered Nurse; Visit Provider Nurse Practitioner | DX: Z01.810 Encounter for preprocedural cardiovascular examination (principal); I77.810 Thoracic aortic ectasia; I10 Essential (primary) hypertension | CPT/HCPCS: 93005; 99212 ==

== ENCOUNTER 2024-04-29 06:57 | Day surgery (SDC) | payer OTHER, SELFPAY ==
[2024-04-25 13:35] VITALS: BMI 40.7
--- NOTE | 2024-04-28 12:03 | P.CONAN_ITS ---
Documented by User: Eulalia Soto NP 04/28/24 12:07 HPI - Anesthesia Eval Consult details Narrative: 54yo M for Colonoscopy Cardiac optimized per workload. Stable at 01/2024 office after cardiac testing for CP was OK Anesthesia Pre-Procedure Meds Is the patient on any of the following meds?: GLP1/DPP4 PMFSH Active Problems Active Problems: All Active Problems Pre-operative cardiovascular examination (Acute) Mild dilation of ascending aorta (Acute) Essential hypertension (Acute) Hyperlipidemia (Acute) Chest pain (Acute) HEADLEY (dyspnea on exertion) (Acute) Past Medical History Medical History Mild dilation of ascending aorta Sleep apnea HEADLEY (dyspnea on exertion) Elevated cholesterol HTN (hypertension) Family History Family History Mother Parkinsons Vascular disease Emphysema lung Father Gastric polyps Brother Hypertension Hyperglycemia Brother Diabetes Surgical History Surgical History Hx of colonoscopy (~2019) Social History Social History Alcohol intake: never Patient Tobacco Use Status: Former Tobacco user Years Smoked: 10 +/- Meds Allergies Allergy/AdvReac Type Severity Reaction Status Date / Time aspirin AdvReac Severe Hives Verified 12/19/23 10:59 cortisone AdvReac Severe Hives Verified 12/19/23 10:59 Home Medications ?Medication ?Instructions ?Recorded ?Confirmed ?Last Taken ?Type empagliflozin 25 mg tablet 25 mg PO QAM diabetes mellitus 08/16/22 04/25/24 04/26/24 History (Jardiance) glipizide 10 mg tablet, extended 10 mg PO QAM diabetes mellitus 08/16/22 04/25/24 04/28/24 History release 24 hr lisinopril 20 1 tab PO DAILY blood pressure 08/16/22 04/25/24 04/28/24 History mg-hydrochlorothiazide 25 mg tablet metformin 500 mg tablet,extended 1,000 mg PO BID 08/16/22 04/25/24 04/28/24 Hi story release 24 hr omega-3 acid ethyl esters 1 gram 2 cap PO BID 01/30/24 04/25/24 04/21/24 History capsule Exam Height,Weight and Vital Signs: Height 5 ft 10 in Weight 128.82 kg Narrative Narrative: EKG 01/2024 EKG Details: EKG today. Normal sinus rhythm. Rate 88 beats per minute. QRS 78 milliseconds. QTC 428 milliseconds. MI 154 milliseconds. ECHO 2022 Conclusions: - Normal left ventricular size and systolic function. There is mildly increased left ventricular wall thickness. The visually estimated ejection fraction is between 65-70%. - Diastolic function is normal for age. - Normal right ventricular cavity size and systolic function. - There is mild dilatation of the sinuses of Valsalva measuring 4.00 cm and mild dilatation of the ascending aorta measuring 3.60 cm. Exercise Stress 2022 Protocol: VAMSHI Max HR: 164 BPM 97% of Pred: 168 BPM Max BP: 208/072 mmHG Max Work Load: 7.9 METS Exercise stress test with exercise 6 min 36 sec of Vamshi protocol, achieving 96% MPHR, with moderate sob, no chest discomfort, with isolated PVCs and tow ventricular cuplets noted in stage 3 and early recovery, with hypertensive response to exercise with max BP 208/72, without EKG changes meeting criteria for ischemia. In recovery his sob resolved and BP returned to near baseline 144/78. Test reviewed with Dr Martinez. Assessment and Plan Assessment Anesthesia Assessment: Chart Reviewed Documented by User: Teresa Mccormick MD 04/29/24 08:48 HPI - Anesthesia Eval Anesthesia Pre-Procedure Meds Is the patient on any of the following meds?: GLP1/DPP4 (Last dose of em pagliflozin 04/26/24) [facility] Active Problems Active Problems: All Active Problems Pre-operative cardiovascular examination (Acute) Mild dilation of ascending aorta (Acute) Essential hypertension (Acute) Hyperlipidemia (Acute) Chest pain (Acute) HEADLEY (dyspnea on exertion) (Acute) LEV. Uses CPAP Past Medical History Medical History Mild dilation of ascending aorta Sleep apnea HEADLEY (dyspnea on exertion) Elevated cholesterol HTN (hypertension) Family History Family History Mother Parkinsons Vascular disease Emphysema lung Father Gastric polyps Brother Hypertension Hyperglycemia Brother Diabetes Family history of problems with anesthesia: No Surgical History Surgical History Hx of colonoscopy (~2019) History of Problems with Anesthesia: No Social History Social History Alcohol intake: never Patient Tobacco Use Status: Former Tobacco user Years Smoked: 10 +/- Meds Allergies Allergy/AdvReac Type Severity Reaction Status Date / Time aspirin AdvReac Severe Hives Verified 12/19/23 10:59 cortisone AdvReac Severe Hives Verified 12/19/23 10:59 Home Medications ?Medication ?Instructions ?Recorded ?Confirmed ?Last Taken ?Type empagliflozin 25 mg tablet 25 mg PO QAM diabetes mellitus 08/16/22 04/25/24 04/26/24 History (Jardiance) glipizide 10 mg tablet, extended 10 mg PO QAM diabetes mellitus 08/16/22 04/25/24 04/28/24 History release 24 hr lisinopril 20 1 tab PO DAILY blood pressure 08/16/22 04/25/24 04/28/24 History mg-hydrochlorothiazide 25 mg tablet metformin 500 mg tablet,extended 1,000 mg PO BID 08/16/22 04/25/24 04/28/24 History release 24 hr omega-3 acid ethyl esters 1 gram 2 cap PO BID 01/30/24 04/25/24 04/21/24 History capsule Exam Height,Weight and Vital Signs: Height 5 ft 10 in Weight 128.82 kg Vital Signs Temp Pulse Resp BP Pulse Ox O2 Del Method 04/29/24 07:13 98.5 F 78 20 161/98 H 96 Room Air Airway Mallampati Class: II TM Dist: >3cm Neck ROM: Full Loose/Missing/Broken Teeth: Yes (Missing 1 tooth top right and left. Denies broken or loose teeth) Heart: RRR Lungs: CTAB Assessment and Plan Assessment Anesthesia Assessment: Anesthesia Plan Discussed and Chart Reviewed Final Anesthetic Review Family History of Problems with Anesthesia: No History of Problems with Anesthesia: No NPO: Yes ASA Class: III Final Preanesthetic Review: No Changes in Pt Med Stat, Meds/Allgs Chart Reviewed, Consent Obtained/Reviewed and Anes Risks/Benef Reviewed Patient Risk: Intermediate Procedure Risk: Low Assessment/Block/Sedation in SS: Assess/Block/Sedation-SS Anesthetic Plan Anesthetic Plan: TIVA Disposition: Standard PACU
--- NOTE | 2024-04-29 06:47 | P.HPSUR_ITS ---
Pre-Procedural Eval Section A - 24 Hr Update-Section A only Date of Service: 04/29/24 Section B - Complete if H&P > 30 days Chief Complaint: screening Details of Present Illness: father with hx of colonic polyps Relevant Family History (Specify if Yes): Yes Relevant Social History: None Present Medications: see Short Stay Collaborative assessment Medical History: Significant History (Mild dilation of ascending aorta Sleep apnea HEADLEY (dyspnea on exertion) Elevated cholesterol HTN (hypertension)) History of Previous Operations: Relevant previous surgery/procedure and date(s) (Hx of colonoscopy (~2019)) Allergies: Allergies Allergy/AdvReac Type Severity Reaction Status Date / Time aspirin AdvReac Severe Hives Verified 12/19/23 10:59 cortisone AdvReac Severe Hives Verified 12/19/23 10:59 Review of Systems Sugical H&P ROS: Negative: Constitution, Cardiovascular, Respiratory, Neurological, Psychiatric, Hem-Onc, Allergic/Immunologic, Gastrointestinal, Genitourinary, Musculoskeletal, Integumentary, Endocrine and Eyes/Ears/Nose /Throat Exam Surgical H&P Exam: Normal: HEENT, Normal: Heart, Normal: Lungs, Normal: Extremities, Normal: Abdomen, Normal: Skin and Normal: Neurological Plan Diagnosis/Plan: Unchanged I have reviewed the history and physical and performed a pertinent physical examination on my patient. No changes have occurred unless specified. Time Spent With Patient Time: Total time managing care of this patient today ____ minutes.
[2024-04-29 07:13] VITALS: BP 161/98; PULSE 78; RESP 20; TEMP 36.9; O2SAT 96; BMI 40.9
[2024-04-29 07:22] LABS: Glucose, Whole Blood 212 mg/dL (60-115)
--- NOTE | 2024-04-29 07:28 | PC.NURSE ---
pt sts poc usually high in th am when he stops taking dm meds 212
[2024-04-29] MEDS: Lactated Ringers 1,000 ML 100 ML IVCONT (07:34)
--- NOTE | 2024-04-29 08:38 | HO.OPN-COLON ---
Colonoscopy Operative Note Operative Note Date of Service: 04/29/24 Narrative: Operative Information Procedure Description: Colonoscopy Indication: Screening Anesthesia: MAC COLONOSCOPY Instrument: Olympus variable stiffness ADULT scope 190L Colonoscopy Monitoring: Vital signs and clinical assessment, continuous EKG monitoring, Pulse oximetry, Carbon Dioxide monitoring and blood pressure monitoring were done throughout the procedure. Colon withdrawal time was 12 minutes. Procedure: The patient was placed in the left lateral decubitis position and pre-procedure medications were administered. After a digital rectal examination of the ano-rectum, the video colonoscope was inserted into the rectum and advanced through the colon to the cecum/TI. The colonoscope was slowly withdrawn in a retrograde panoramic fashion and the colon mucosa was carefully examined including a retroflexed view of the rectum. Findings and interventions are described below. Procedure Difficulty: easy Findings: Terminal Ileum-normal Cecum:normal Right sided retroflexion- normal Ascending Colon: normal Transverse Colon - 10 mm sessile polyp removed with cold snare Descending Colon:normal Sigmoid Colon: x 2 sessile polyps 6-8 mm removed with cold forceps Rectum: Retroflexion with small internal hemorrhoids seen, grade I Anorectum - normal Intervention: cold snare, cold forceps Colon preparation: [place] Bowel Preparation Scale Right colon; 2 Transverse colon: 2 Left colon; 2 (0 = Unprepared colon segment with mucosa not seen due to solid stool that cannot be cleared. 1 = Portion of mucosa of the colon segment seen, but other areas of the colon segment not well seen due to staining, residual stool and/or opaque liquid. 2 = Minor amount of residual staining, small fragments of stool and/or opaque liquid, but mucosa of colon segment seen well. 3 = Entire mucosa of colon segment seen well with no residual staining, small fragments of stool or opaque liquid) Impression and Post Procedure Diagnosis: colon polyps x 3 internal hemorrhoids Plan: High fiber diet leaflet Avoid straining at stool, epsom salts and sitz bath, anusol supps or cream Repeat Colonoscopy in 5 years due to polyps or earlier if clinically indicated Above findings were reviewed with the patient and relevant handouts were provided if indicated.
[2024-04-29 08:44] VITALS: BP 117/63; PULSE 75; RESP 16; TEMP 36.1; O2SAT 96
[2024-04-29 09:00] VITALS: BP 126/73; PULSE 75; RESP 17; TEMP 36.1; O2SAT 97
== END 2024-04-29 09:13 | disposition home or self-care (01) ==
PROVIDERS: PCP Registered Nurse; Visit Provider Internal Medicine Gastroenterology
PROC: 0DJD8ZZ Inspection of Lower Intestinal Tract, Via Natural or Artificial Opening Endoscopic (ICD-10-PCS; CPT 45378; principal; 2024-04-29 08:10)
DX: Z12.11 Encounter for screening for malignant neoplasm of colon (principal); D12.3 Benign neoplasm of transverse colon; K64.0 First degree hemorrhoids; Z83.719 Family history of colon polyps, unspecified; E11.9 Type 2 diabetes mellitus without complications; I10 Essential (primary) hypertension; E78.00 Pure hypercholesterolemia, unspecified; Z87.891 Personal history of nicotine dependence; Z79.84 Long term (current) use of oral hypoglycemic drugs; Z79.02 Long term (current) use of antithrombotics/antiplatelets; Z79.899 Other long term (current) drug therapy
CPT/HCPCS: 45385; 45380; 82947; 88305; J2003; J2704

== ENCOUNTER → 2024-04-29 06:57 | Outpatient (BNV) | payer OTHER, SELFPAY | PROVIDERS: PCP Registered Nurse; Visit Provider Internal Medicine Gastroenterology | DX: Z12.11 Encounter for screening for malignant neoplasm of colon (principal); D12.3 Benign neoplasm of transverse colon; K63.5 Polyp of colon; K64.0 First degree hemorrhoids | CPT/HCPCS: 45380; 45385 ==

== ENCOUNTER 2024-07-21 09:42 | Outpatient (AMB) | payer OTHER, SELFPAY ==
[2024-07-21 09:49] VITALS: BP 124/80; PULSE 77; BMI 41.8
--- NOTE | 2024-07-21 09:49 | A.OFFVIS_ITS ---
Vital Signs 07/21/24 09:49 Height 5 ft 10 in Weight 291 lb 0.163 oz BMI 41.8 BP 124/80 Blood Pressure Location Lt brachial Position Sitting Pulse 77 Pulse Source Pulse Oximeter Intake Visit Reasons: f/u Publicity Person Required: No Allergies aspirin Adverse Reaction (Severe, Verified 07/21/24 09:51) Hives cortisone Adverse Reaction (Severe, Verified 07/21/24 09:51) Hives Medication List - Last Reconciled 07/21/24 by Anna Messer, SIMON-C atorvastatin 40 mg PO BEDTIME 90 days carvedilol 6.25 mg PO BID empagliflozin (Jardiance) 25 mg PO QAM glipizide ER 10 mg PO QAM lisinopril-hydrochlorothiazide 20-25 mg 1 tab PO DAILY metformin ER 1,000 mg PO BID omega-3 acid ethyl esters 1 cap PO DAILY HPI HPI f/u: Details: Reggie is a 54-year-old male with past medical history of morbid obesity, hypertension, hyperlipidemia, sleep apnea with CPAP use, mildly dilated ascending aorta presents for follow-up. Today he reports that he has been doing well with no concerning symptoms. He denies chest discomfort at rest or with activity. No concerning shortness of breath. No PND, orthopnea or edema. No lightheadedness, presyncope, syncope. Compliant with meds. Wants to work on weight loss and increasing his physical activity. [facility] Medical History Mild dilation of ascending aorta Sleep apnea HEADLEY (dyspnea on exertion) Elevated cholesterol HTN (hypertension) Surgical History Hx of colonoscopy (~2019) Family History Mother Parkinsons Vascular disease Emphysema lung Father Gastric polyps Brother Hypertension Hyperglycemia Brother Diabetes Social History Alcohol intake: never Patient Tobacco Use Status: Former Tobacco user Years Smoked: 10 +/- Review of Systems Const All systems reviewed & are unremarkable except as noted in HPI and below ENT Denies dizziness Card Denies chest pain, Denies chest pain at rest, Denies chest pain with activity, Denies rapid heart rate, Denies pedal edema, Denies edema, Denies leg edema, Denies lightheadedness, Denies palpitations, Denies dyspnea, Denies dyspnea on exertion and Denies orthopnea Resp Denies cough, Denies dyspnea and Denies dyspnea on exertion GI Denies hematochezia and Denies change in stool character Musc Denies abnormal gait, Denies limited range of motion, Denies muscle cramps, Denies muscle weakness, Denies numbness, Denies radiating pain into limb, Denies stiffness and Denies tingling Neuro Denies abnormal gait, Denies dizziness, Denies numbness and Denies tingling Endo Denies palpitations Physical Exam Vital Signs: Last Vital Signs Pulse 77 07/21/24 09:49 BP 124/80 07/21/24 09:49 BMI result Body Mass Index 41.8 Const General: cooperative, healthy appearing, comfortable and no acute distress Orientation/consciousness: patient oriented x3 Neck Neck: Yes normal visual inspection Resp Effort & Inspection: normal respiratory effort Auscultation: clear to auscultation bilaterally, no rales, no rhonchi and no wheezes Cardio Rate: regular rate Rhythm: regular rhythm Heart sounds: S1 normal heart sound present, S2 normal heart sound present, no gallops, no murmurs and no rubs Neuro General: patient oriented x3 Extrem General: Yes normal to inspection, No no pedal edema and No calf tenderness Psych Appearance: grossly normal Mental Status: mental status grossly normal Speech and movement: Normal speech and movement present Assessment & Plan Assessment & Plan (1) Essential hypertension: Code(s): I10 - Essential (primary) hypertension Category: Medical Plan: History of hypertension. Well controlled with carvedilol and lisinopril/hydrochlorothiazide combination. Last echo 08/29/22 shows EF 65-70%, mild increase in the LV wall thickness, normal RV mild ascending aorta dilation. Blood pressure today 124/80. Labs 09/27/2023 showed creatinine 0.94. No med changes made. The importance of good blood pressure control discussed with him. (2) Mild dilation of ascending aorta: Code(s): I77.810 - Thoracic aortic ectasia Category: Medical Plan: Last echo shows sinus of Valsalva 4 cm, ascending aorta 3.6 cm. The importance of good blood pressure control reviewed. Will update echo then plan for cardiology follow-up in 2 years, sooner if needed. (3) Hyperlipidemia: Code(s): E78.5 - Hyperlipidemia, unspecified Category: Medical Plan: [place] LDL goal less than 100. He is on atorvastatin. Labs followed by his PCP. (4) LVE (obstructive sleep apnea): Code(s): G47.33 - Obstructive sleep apnea (adult) (pediatric) Category: Medical Plan: History of obstructive sleep apnea and he reports compliance with CPAP mask. (5) Morbid obesity: Code(s): E66.01 - Morbid (severe) obesity due to excess calories Category: Medical Plan: Current BMI 41.8. Benefits a weight loss reviewed. He is going to work on diet control and increasing physical activity. Plan Time spent on chart review, documentation, interview and assessment Orders: Orders CA echo transthoracic complete Today G47.33 - Obstructive sleep apnea (adult) (pediatric), I10 - Essential (primary) hypertension, I77.810 - Thoracic aortic ectasia Coding Level of Care Code Est Pt Level 4 (88090) Complex EM visit Add On G2211 Diagnoses Essential hypertension I10 Mild dilation of ascending aorta I77.810 Hyperlipidemia E78.5 LEV (obstructive sleep apnea) G47.33 Morbid obesity E66.01 Time Spent (min) 30
--- OUTSIDE RECORDS SUMMARY | 2024-07-21 10:36 | XMS_ITS | Encounter Summary ---
Author Organization [employer] Address [address] [facility] [address] [place] [address] Care Team Providers Care House Mover Name Role Phone Hoda Sal Primary Care Provider [phone] Reason for Visit * Reason Comments Med Refill Encounter Details Date Type Department Care Team ([facility] st Contact Info) Description 06/29/2024 Refill [facility] MED & PEDS [address] [place], [place] [phone] Hoda Sal FNP [address] [place] [address] Mixed hyperlipidemia Social History Tobacco Use Types Packs/Day Years Used Date Smoking Tobacco: Former Cigarettes Smokeless Tobacco: Never Alcohol Use Standard Drinks/Week Comments Never 0 (1 standard drink = 0.6 oz pur e alcohol) Housing Stability Answer Date Recorded What is your housing situation today? I have mark carlson 02/19/[address] you li ve. Do you have problems with any of the following? None of the above 02/19/2023 Food Insecurity Answer Date Recorded Within the past 12 months, y ou worried that your food would run out before you got money to buy more: Never True 02/19/2023 Within the past 12 months,th e food you bought just didn't last and you didn't have enough money to get more: Never True Transportation Answer Date Recorded In the past 12 months, has l ack of transportation kept you from medical appts, meetings, work or from getting things needed for daily living? No 02/19/2023 Utilities Answer Date Recorded In the past 12 months, has t he electric, gas, oil or water company threatened to shut off services in your home? No 02/19/2023 Sex and Gender Information Value Date Recorded Sex Assigned at Male 03/06/2022 10:37 AM EDT Legal Sex Male 10:37 AM EDT Gender Identity Male 03/06/2022 10:37 AM EDT Sexual Orientation Straight 03/06/2022 10 :37 AM EDT documented as of this encounter Plan of Treatment Not on file documented as of this encounter Visit Diagnoses Diagnosis Mixed hyperlipidemia documented in this encounter Care Teams House Mover Relationship Specialty Start Date End Date Hoda Sal FNP [address] [place] [address] PCP - General Family Medicine 12/29/21 documented as of this encounter
--- OUTSIDE RECORDS SUMMARY | 2024-07-21 10:36 | XMS_ITS | Encounter Summary ---
Author Organization [employer] Address [address] [place] [address] Care Team Providers Care Mannequin Mounter Name Role Phone Hoda Sal NICOLE Primary Care Provider [phone] Encounter Details Date Type Department Care Team (Late st Contact Info) Description 05/08/2024 Orders Only [facility] CHC MED & PEDS [address] [place], [place] [phone] ProviderNilay MD Social History Tobacco Use Types Packs/Day Years [...] on file documented as of this encounter Procedures Procedure Name Priority Date/Time Associated Diagnosis Comments HM COLONOSCOPY Routine 04/29/2024 3:31 PM EST documented in this encounter Results * Hm Colonoscopy (04/29/2024 3:31 PM EST) us Historical Provider HEALTH MAINTENANCE Final Result documented in this encounter Visit Diagnoses Not on filedocumented in this encounter Care Teams Mannequin Mounter Relationship Specialty Start Date End Date Hoda Sal FNP [address] [place] [id number] PCP - General Family Medicine 12/29/21 documented as of this encounter
--- OUTSIDE RECORDS SUMMARY | 2024-07-21 10:36 | XMS_ITS | Encounter Summary ---
Author Organization [employer] Address [address] [facility] [address] [place] [address] Care Team Providers Care Lot Attendant Name Role Phone Hoda Sal Primary Care Provider [phone] Reason for Visit * Reason Comments Med Refill Encounter Details Date Type Department Care Team ([facility] st Contact Info) Description 04/16/2023 Refill [facility] MEDICINE [address] [place] [address] Hoda Sal FNP [address] [place], [place] [phone] Type 2 diabetes mellitus without complication, without long-term current use of insulin ([facility]) Social History Tobacco Use Types Packs/Day Years Used Date Smoking Tobacco: Never Smokeless Tobacco: Never Alcohol Use Standard Drinks/Week [...] as of this encounter Visit Diagnoses Diagnosis Type 2 diabetes mellitus without complication, without long-term current use of insulin ([facility]) documented in this encounter Care Teams Lot Attendant Relationship Specialty Start Date End Date Hoda Sal FNP [address] [place] [id number] PCP - General Family Medicine 12/29/21 documented as of this encounter
--- OUTSIDE RECORDS SUMMARY | 2024-07-21 10:36 | XMS_ITS | Encounter Summary ---
Author Organization [employer] Address [address] [place] [address] 7 [place] [address] Care Team Providers Care Railroad Watchman Name Role Phone Hoda Sal Primary Care Provider [phone] Reason for Visit * Reason Onset Date Comments Appointment Request 12/18/2022 Encounter Details Date Type Department Care Team ([facility] st Contact Info) Description 12/18/[address] [facility] MEDICINE [address] [place] [address] Hoda Sal FNP [address] [place] [address] Appointment Request Social History Tobacco Use Types Packs/Day Years Used Date Smoking Tobacco: Never Smokeless Tobacco: Never Alcohol Use Standard Drinks/Week Comments Never 0 (1 standard drink = 0.6 oz pur e alcohol) Sex and Gender Information Value Date Recorded Sex Assigned at Male 03/06/2022 10:37 AM EDT Legal Sex Male 10:37 AM EDT Gender Identity Male 03/06/2022 10:37 AM EDT Sexual Orientation Straight 03/06/2022 10 :37 AM EDT documented as of this encounter Miscellaneous Notes * Telephone Encounter - Jose Lockwood - 12/18/2022 2:27 PM EDT Tc from pt spouse requesting to r/s appt for TP on 12/19/2022. Please contact pt at [phone] [facility] Speaker documented in this encounter Plan of Treatment Not on file documented as of this encounter Visit Diagnoses Not on filedocumented in this encounter Care Teams Railroad Watchman Relationship Specialty Start Date End Date Hoda Sal FNP [address] [place] [phone] PCP - General Family Medicine 12/29/21 documented as of this encounter
--- OUTSIDE RECORDS SUMMARY | 2024-07-21 10:36 | XMS_ITS | Clinical Summary ---
Author Organization [employer] Address [address] [facility] [address] [place] [address] Care Team Providers Care Hand Heel Seat Fitter Name Role Phone Maria DHoda forman NICOLE Primary Care Provider [phone] Allergies Active Allergy Reactions Criticality Noted Date Comments Aspirin 07/23/2020 Other reaction(s): Facial swelling, Hives / Skin Rash Cortisone 07/23/2020 Other reaction(s): Swollen ear canal following topical drops Medications Spacer/Aero-Holdi ng Chambers (OptiChamber Emerita) misc 1 each every 4 (four) hours if needed (asthma). 1 each 04/24/20 23 Active albuterol 108 (90 Base) MCG/ACT inhaler Inhale 2 puffs every 4 (four) hours. 18 g 2 04/24/20 23 Active glucose blood (FREESTYLE LITE) test stripIndications: Type 2 diabetes mellitus without complication, without long-term current use of insulin ([facility]) 1 each by Other route every 12 (twelve) hours. 100 each 11 05/11/19 24 Active lisinopril-hydroC HLOROthiazide 20-25 MG tabletIndications :Essential hypertension take 1 tablet by oral route every day for high blood pressure 90 tablet 3 05/11/19 24 Active omega-3 acid ethyl esters (Lovaza) 1 g capsuleIndication s:Mixed hyperlipidemia Take 1 capsule (1 g) by mouth in the morning. 90 capsule 3 05/11/19 24 Active Lancets miscIndications:T ype 2 diabetes mellitus without complication, without long-term current use of insulin ([facility]) 1 each 2 times daily. 180 each 3 05/11/19 24 Active Alcohol Swabs padsIndications:T ype 2 diabetes mellitus without complication, without long-term current use of insulin ([facility]) 1 each 2 times daily. 100 each 11 05/11/19 24 Active Jardiance 25 MGIndications:Typ e 2 diabetes mellitus without complication, without long-term current use of insulin ([facility]) TAKE 1 TABLET BY MOUTH ONCE DAILY IN THE MORNING FOR DIABETES 90 tablet 3 05/19/19 25 Active carvedilol (Coreg) 6.25 MG tabletIndications :Type 2 diabetes mellitus without complication, without long-term current use of insulin ([facility]) TAKE 1 TABLET BY MOUTH TWICE DAILY MUST TAKE WITH A MEAL/FOOD 180 tablet 2 05/27/19 25 Active glipiZIDE XL (Glucotrol XL) 10 MG 24 hr tabletIndications :Type 2 diabetes mellitus without complication, without long-term current use of insulin ([facility]) TAKE 1 TABLET BY MOUTH ONCE DAILY WITH BREAKFAST FOR DIABETES 90 tablet 2 05/27/19 25 Active metFORMIN XR (Glucophage-XR) 500 MG 24 hr tabletIndications :Type 2 diabetes mellitus without complication, without long-term current use of insulin ([facility]) TAKE 2 TABLETS BY MOUTH WITH BREAKFAST AND 2 TABLETS WITH EVENING MEAL 360 tablet 1 06/20/19 25 Active atorvastatin (Lipitor) 40 MG tabletIndications :Mixed hyperlipidemia Take 1 tablet (40 mg) by mouth at bedtime. (Cholesterol ) 90 tablet 07/01/19 25 Active atorvastatin (Lipitor) 40 MG tabletIndications :Mixed hyperlipidemia Take 1 tablet (40 mg) by mouth at bedtime. 90 tablet 3 05/11/19 24 025 Discontinued Active Problems Problem Noted Date Diagnosed Date Healthcare maintenance 05/11/2023 Overview (05/17/2023): ?? Last PE: 05/11/23 ?? PSA: pending ?? Colonoscopy: per pt report - 3 polyps removed in 2017, due for repeat colonoscopy in 2022. Referral placed to re-establish / [facility] in May 2023. Essential hypertension 05/30/2022 Overview (05/17/2023): -Continues lisinopril-hydrochlorothiazide 20-25mg daily -Continues Carvedilol 6.25mg BID -Continue monitoring at home, with goal <130/80 mmHg Encourage lifestyle interventions including: ?? Low fat diet rich in fruits and vegetables ?? Maintaining healthy weight ?? Limiting dietary sodium with a goal <1500mg/day ?? Increasing activity with goal of 150 mins of aerobic exercise per week Reviewed ED precautions Assessment & Plan (09/06/2023 9:14 AM EDT): Elevated in office, suspect d/t lack med adherence Follow up if continued to be elevated despite goal for increased med adherence and lifestyle interventions Assessment & Plan (05/17/2023 5:18 PM EST): Elevated in office, follow up if home readings elevated Assessment & Plan (06/01/2022 12:51 PM EST): -Continue current regimen -Check CMP, urine microalbumin -Record BP readings at home for the next 2 weeks and bring home log to follow up appt Hyperlipidemia 05/30/2022 Overview (09/06/2023): Lab Results Component Value Date TRIG 474 (H) 04/24/2023 TRIG 1,126 (H) 05/31/2022 -No known history of pancreatitis -Following with [facility] Cards - Dr. Martinez. -Unable to tolerate SE rosuvastatin (dizziness) -Cont atorvastatin and omega-3 through Cards -Encouraged dietary modifications, monitor for signs of pancreatitis and other ED precautions. Assessment & Plan (09/03/2023 8:33 AM EDT): Continue with medication, recheck lipids Assessment & Plan (06/01/2022 12:43 PM EST): Continue with medication, recheck lipids Mild intermittent asthma 05/30/2022 Assessment & Plan (05/17/2023 5:17 PM EST): ?? Well controlled, using albuterol <2x/week ?? Cont albuterol PRN Obstructive sleep apnea syndrome 03/10/2021 Assessment & Plan (05/17/2023 5:17 PM EST): -Continues with CPAP nightly, due for titration study -Titration study order sent 05/17/23 Type 2 diabetes mellitus without complication Overview (09/06/2023): Lab Results Component Value Date HGBA1C 10.3 (A) 09/03/2023 HGBA1C 9.3 (A) 05/11/2023 HGBA1C 8.5 (H) 05/31/2022 HGBA1C 8.6 (A) 05/30/2022 HGBA1C 8.0 (H) 05/26/2021 Med regimen: -Metformin 1000mg BID -Empagliflozin 25mg daily -Glipizide 10mg daily Assessment & Plan (09/06/2023 9:12 AM EDT): -A1c above goal -Goal for daily med adherence with changes in employment stress level, as well as improved nutrition and physical activity -Follow up in 3 months to determine in med changes indicated Assessment & Plan (05/17/2023 5:19 PM EST): -A1c above goal -Shared decision making to continue with current regimen at this time and increase lifestyle interventions Assessment & Plan (06/13/2022 8:44 PM EST): -Shared decision making to continue with current regimen at this time and increase lifestyle interventions Assessment & Plan (06/01/2022 12:52 PM EST): -Discussed addition of GLP-1 such as Trulicity and the additional CV benefits, although pt declines at this time -Shared decision making to continue with current regimen at this time and increase lifestyle interventions Encounters Date Type Department Care Team Description 06/29/2024 Refill [facility] [address] [place] [address] Hoda Sal FNP Mixed hyperlipidemia 06/20/2024 Refill [facility] [address] [place] [address] Hoda Sal FNP Type 2 diabetes mellitus without complication, without long-term current use of insulin ([facility]) 05/24/2024 Refill [facility] [address] [place] [address] Hoda Sal FNP Type 2 diabetes mellitus without complication, without long-term current use of insulin ([facility]) 05/18/2024 Refill [facility] [address] [place] [address] Hoda Sal FNP Type 2 diabetes mellitus without complication, without long-term current use of insulin ([facility]) 05/08/2024 Orders Only [facility] [address] [place] [address] Provider, MD Nilay 04/29/2024 Orders Only GENERIC EXTERNAL DATA DEPARTMENT Provider, Generic External Data from Last 3 Months Immunizations Name Administration Dates Next Due Hep B, adult 06/24/2021,02/18/2021,12/15/2020 Influenza Injectable Quadriv alant Preservative Free IIV4 MDCK 02/18/2021 Influenza injectable quadriv alent preservative free 05/11/2023 Pfizer Covid-19 Vaccine 12+ 05/11/2023 Pneumococcal Conjugate PCV 20 05/11/2023 Pneumococcal Polysaccharide PPSV23 07/26/2021 Tdap 12/15/2020 Zoster, Recombinant 01/14/2021,11/12/2020 Family History Medical History Relation Name Comments Colon polyps Father Pancreatic cancer Maternal Grandfather Pancreatitis Maternal Grandfather Anxiety disorder Mother Emphysema Mother Parkinsonism Mother cardiovascular disease Mother Alzheimer's disease Mother's Brother 1 Schizophrenia Mother's Brother 2 Stroke Mother's Sister cardiovascular condition Mother's Sister Liver cancer Other 1 Relation Name Status Comments Father Maternal Grandfather Mother Mother's Brother 1 Mother's Brother 2 Mother's Sister Other 1 2nd cousin Other 2 Alive Social History Tobacco Use Types Packs/Day Years Used Date Smoking Tobacco: Former Cigarettes Smokeless Tobacco: Never Tobacco Cessation:Counseling Given: Not Answered Alcohol Use Standard Drinks/Week Comments Never 0 [...] Orientation Straight 03/06/2022 10 :37 AM EDT Last Filed Vital Signs Vital Sign Reading Time Taken Comments Blood Pressure 158/90 01/22/2024 9:05 AM EDT Pulse 81 01/22/2024 9:05 AM EDT Temperature 36.9 ??C (98.5 ??F) 01/22/2024 9:05 AM ED T Respiratory Rate 20 01/22/2024 9:05 AM EDT Oxygen Saturation 97% 01/22/2024 9:05 AM EDT Inhaled Oxygen Concentration - - Weight 131 kg (288 lb) 01/22/2024 9:05 AM EDT Height 177.8 cm (5' 10 ) 01/22/2024 9:05 AM EDT Body Mass Index 41.32 01/22/2024 9:05 AM EDT Plan of Treatment Health Maintenance Due Date Last Done Comments CT Colonography 1970 Depression Screening 1970 FIT DNA/Cologuard 1970 FIT 1970 FOBT 1970 Sigmoidoscopy 1970 Alcohol/Substance Use Screening 1982 SDOH Screening 12/09/2023 12/08/2022 COVID-19 Vaccine ( season) 2024 05/11/2023, 06/17/2021, 08/09/2020, Additional history exists Influenza Vaccine (#1) 2024 05/11/2023, 2020 Tobacco Screening 01/21/2025 01/22/2024 Lipid Panel 01/14/2029 01/15/2024, 05/2 07/2023, 04/24/2023, Additional history exists Colonoscopy 04/29/2029 04/29/2024 Colorectal Cancer Screening 04/29/2029 DTaP/Tdap/Td Vaccines (3 - Td or Tdap) 12/15/2030 12/15/2020, 06/12/2018 RSV Patients and Patients Aged 60 years or older (1 - 1-dose 75+ series) 2045 Zoster Vaccines Completed 01/14/2021, 11/12/2020 Hepatitis B Vaccines Completed 06/24/2021, 02/18/2021, 12/15/2020 HIV Screening Completed 05/31/2022 Hepatitis C Screening Completed 05/31/2022 Pneumococcal Vaccine: 50+ Years Completed 05/11/2023, 07/26/2021, 12/11/2018 HIB Vaccines Aged Out No longer eligi ble based on patient's age to complete this topic HPV Vaccines Aged Out No longer eligi ble based on patient's age to complete this topic Hepatitis A Vaccines Aged Out No long er eligible based on patient's age to complete this topic IPV Vaccines Aged Out No longer eligi ble based on patient's age to complete this topic Meningococcal Vaccine Aged Out No laura nicky eligible based on patient's age to complete this topic RSV under 20 months Aged Out No longe r eligible based on patient's age to complete this topic Rotavirus Vaccines Aged Out No longer eligible based on patient's age to complete this topic Procedures Procedure Name Priority Date/Time Associated Diagnosis Comments HM COLONOSCOPY Routine 04/29/2024 3:31 PM EST HEMATOXYLIN AND EOSIN STAIN Routine 04/29/2024 8:29 AM EST GLUCOSE, WHOLE BLOOD Routine 04/29/2024 7:18 AM EST LIPID PANEL, STANDARD Routine 01/15/2024 9:10 AM EDT HEPATITIS C AB W/REFL TO HCV RNA, QN, PCR Routine 05/31/2022 8:47 AM EST Routine health maintenance HIV 1 RNA, QN PCR W/RFL ADA (RTI,PI,INTEGRASE) Routine 05/31/2022 8:47 AM EST Routine health maintenance from Last 3 Months or Most Recently Relevant to Health Maintenance Results * Hm Colonoscopy (04/29/2024 3:31 PM EST) us Historical Provider HEALTH MAINTENANCE Final Result * Hematoxylin and Eosin Stain (04/29/2024 8:29 AM EST) 04/29/2024 8:29 AM EST 04/29/2024 9:10 AM EST Narrative [facility] - 05/01/2024 10:19 AM EST ----- ------- Name: Reggie Batista ? Age/Sex: 54/M ? : 1970 Unit#: [id number] ?? Attend Dr: Faustino Santo MD ?Re04/29/24 ?Status: DEP SDC ? Location: HO.SSS ?Disch: ? ----- ------- SPEC : [id number] ? RECD: 04/29/24 ? STATUS: ??SOUT ? REQ NUM: [id number] ? SHEA: 04/29/24 ? SUBM DR: Faustino Santo MD ? ENTERED: ??04/29/24 ?SP TYPE: Surgical ? OTHR DR: Hoda Sal SEED MILL SUPERINTENDENT ? ORDERED: ??HE Stain/6, Gross Micro L4/2 ? Diagnosis ?? A. ??Colon, transverse, polyp: ??Tubular adenoma, likely excised; negative for high-grade ?? dysplasia and carcinoma. ? B. ??Colon, sigmoid, polyps: ??Hyperplastic polyps, 4 pieces. ?Clinical History Pre-Op Dx: ??Family history of polyps Post-Op Dx: Internal hemorrhoids, colon polyps ?Microscopic Description Microscopic sections reviewed. ? Material Received ?? A. Transverse colon polyp ?? B. Sigmoid polyps ? Gross Description Received in two parts. Part A: ??Received in formalin labeled ?transverse colon polyp? is a 0.5 cm harris-red papular tissue fragment, submitted in toto in a cassette labeled A. Part B: ??Received in formalin labeled ?sigmoid polyps? are 4 harris irregular tissue fragments ranging from 0.1 to 0.2 cm, submitted in toto in a cassette labeled Dory DALE Copies To: ?? Faustino Santo MD ?? [facility] ?? [address] ?? [place] [address] ?? [phone] ?? Hoda Sal SEED MILL SUPERINTENDENT ?? [address] [facility] ?? [place] ?? [phone] ? CONTINUED ON NEXT PAGE ----- ------- Name: Reggie Batista ? Age/Sex: 54/M ? : 1970 Unit#: [id number] ?? Attend Dr: Faustino Santo MD ?Re04/29/24 ?Status: DEP SDC ? Location: HO.SSS ?Disch: ? ----- ------- SPEC : [id number] ? RECD: 04/29/24-909 ? STATUS: ??SOUT ? REQ NUM: [id number] ? SHEA: 04/29/24 ? SUBM DR: Faustino Santo MD ? ENTERED: ??04/29/24 ?SP TYPE: Surgical ? OTHR DR: Hoda Sal SEED MILL SUPERINTENDENT ? ORDERED: ??HE Stain/6, Gross Micro L4/2 ? ----- ------- Signed (signature on file) Blanca Martinez 05/01/24 1019 ? ----- ------- ? END OF REPORT ? us Generic External Data Provider LAB BLOOD ORDERAB LES Final Result Performing Organization Address [facility]/ZIP Co de Phone Number [facility] [address] [place] [address] [phone] * (ABNORMAL) Glucose, Whole Blood (04/29/2024 7:18 AM EST) Glucose, Whole Blood 212(H) 60 - 115 mg/dL [facility] Comment:METER #: [id number] 04/29/2024 7:18 AM EST 04/29/2024 7:22 AM EST Generic External Data Provider LAB BLOOD ORDERAB LES Final Result Performing Organization Address [facility] Co de Phone Number [facility] [address] [place] [address] [phone] * (ABNORMAL) Lipid Panel, Standard (01/15/2024 9:10 AM EDT) Triglycerides 389(H) <150 mg/dL [facility] Comment:Desirable Triglyceri de: less than 150 mg/dLBorderline High Triglyceride 150-199 mg/dLHigh Triglyceride: 200-499 mg/dLVery High Triglyceride: greater than or equal to 5OO mg/dL Cholesterol 145 <200 mg/dL [facility] Comment:Desirable Cholestero l: less than 200 mg/dLBorderline High Cholesterol: 200-239 mg/dLHigh Cholesterol: greater than 239 mg/dL LDL Cholesterol Calculated 41 <100 mg/dL [facility] Comment:Desirable LDL: less than 100 mg/dLNear Optimal/Above Optimal LDL: 110- 129 mg/dLBorderline High LDL: 130-159 mg/dLHigh LDL: 160-189 mg/dLVery High LDL: greater than or equal to 190 mg/dL HDL Cholesterol 27(L) >40 mg/dL [facility] Comment:Desirable HDL: great er than 40 mg/dL Note: This HDL assay may give artificially low results in patients with liver disease. 01/15/2024 9:10 AM EDT 01/15/2024 9:10 AM EDT Generic External Data Provider LAB BLOOD ORDERAB LES Final Result [facility] [address] [place] [phone] * HIV-1 RNA, Quantitative, Real-Time PCR with Reflex to Genotype (RTI, PI, Integrase) (05/31/2022 8:47 AM EST) Pathologist [facility] HIV 1 RNA, QN PCR NOT DETECTED copies/mL [facility], HIV 1 RNA, QN PCR NOT DETECTED Log copies/mL [facility], Comment: REFERENCE RANGE: NOT DETECTED copies/mL ?NOT DETECTED ??Log copies/mL This test was performed using Real-Time Polymerase Chain Reaction. Reportable range is 20 to 10,000,000 copies/mL (1.30-7.00 Log copies/mL). 05/31/2022 8:47 AM EST 05/31/2022 8:47 AM EST Narrative [facility] - 06/03/2022 12:31 AM EST FASTING:YES FASTING: YES us Hoda Sal SEED MILL SUPERINTENDENT LAB BLOOD ORDERABLES Final Res ult Performing Organization Address City/[facility]/ZIP Co de Phone Number [facility] [address], [place] [address] [facility], [address] [place] [address] * Hepatitis C Antibody with Reflex to HCV, RNA, Quantitative, Real-Time PCR (05/31/2022 8:47 AM EST) Pathologist [facility] Hepatitis C Antibody NON-REACT CANDE NON-REACT CANDE [facility] [place] [facility] Index <0.02 <1.00 [facility] [place] [facility] Comment: HCV antibody was non-reactive. There is no laboratory evidence of HCV infection. In most cases, no further action is required. However, if recent HCV exposure is suspected, a test for HCV RNA (test code 30420) is suggested. For additional information please refer to http://education.[employer]/faq/YKF30a5 (This link is being provided for informational/ educational purposes only.) Blood Venous blood specimen / Unknown 05/31/2022 8:47 AM EST 05/31/2022 8:47 AM EST Narrative [facility] - 06/03/2022 12:31 AM EST FASTING:YES FASTING: YES us Hoda Sal SEED MILL SUPERINTENDENT LAB BLOOD ORDERABLES Final Res ult [facility] [address], [place] [address] [facility] [address] [facility], ([address]) [place] [address] from Last 3 Months or Most Recently Relevant [place] [address] Care Teams Hand Heel Seat Fitter Relationship Specialty Start Date End Date Hoda Sal FNP [address] [place] [address] PCP - General Family Medicine 12/29/21
== END 2024-07-21 10:18 | disposition home or self-care (01) ==
LOC: HO.HCS 09:43
PROVIDERS: PCP Registered Nurse; Visit Provider Nurse Practitioner Family
DX: I10 Essential (primary) hypertension (principal); I77.810 Thoracic aortic ectasia; E78.5 Hyperlipidemia, unspecified; G47.33 Obstructive sleep apnea (adult) (pediatric); E66.01 Morbid (severe) obesity due to excess calories
CPT/HCPCS: 99214; G2211

== ENCOUNTER → 2024-07-21 09:42 | Outpatient (BNVA) | payer OTHER, SELFPAY | PROVIDERS: PCP Registered Nurse; Visit Provider Nurse Practitioner Family | DX: I77.810 Thoracic aortic ectasia (principal); I10 Essential (primary) hypertension; G47.33 Obstructive sleep apnea (adult) (pediatric); E78.5 Hyperlipidemia, unspecified; E66.01 Morbid (severe) obesity due to excess calories; Z68.41 Body mass index [BMI] 40.0-44.9, adult | CPT/HCPCS: 99212 ==

== ENCOUNTER → 2024-08-04 07:59 | Outpatient (REF) | payer OTHER, SELFPAY ==
--- NOTE | 2024-08-04 08:02 | CA_ITS ---
Transthoracic Echocardiogram Patient (Last, First, Middle): Reggie Batista, Gender: Male Date of : 1970 Age: 54 Procedure Date: 08/04/2024 Procedure Type: Transthoracic Echocardiogram Location: OP Height: 177.8 cm Weight: 131.54 kg BSA: 2.44 m2 Heart Rate: bpm BP: 130 / 82 mmHg Credit Counselor: Referring MD: Anna Messer PATIENT ACCOUNTS SPECIALIST-C Symptoms: I77.810 - Thoracic aortic ectasia, I10 HTN Study Quality: Fair ECG Rhythm: Sinus Conclusions: - The left ventricular systolic function is normal. The calculated ejection fraction is 60% by biplane method. - No obvious valvular pathology seen on this study. - The asc aorta is normal in size. Findings Left Ventricle Normal left ventricular cavity size. There is mildly increased left ventricular wall thickness. The left ventricular systolic function is normal. The calculated ejection fraction is 60% by biplane method. There is no evidence of regional wall motion abnormalities. Diastolic function is normal for age. Right Ventricle Mildly increased right ventricular cavity size. There is normal right ventricular systolic function. Atria Both atria are normal in size. Aortic Valve There is a normal trileaflet aortic valve. There is no aortic valve stenosis. There is no aortic valve regurgitation. Mitral Valve The mitral valve appears normal. There is no mitral valve regurgitation. There is no mitral valve stenosis. Pulmonic Valve The pulmonic valve is likely normal. Tricuspid Valve There is trace tricuspid valve regurgitation. There is no evidence of pulmonary hypertension. Great Vessels The asc aorta is normal in size. Venous The inferior vena cava is normal in size. Pericardium/Pleural There is no evidence of pericardial effusion. Prior Study Comparison Changes noted compared to prior study dated: 08/29/2022. Ascending aorta size within normal range. Recommendations, Care & Conclusions No obvious valvular pathology seen on this study. Measurements 2D Linear Measurements IVSd: 1.27 0.6-0.9/0.6-1.0 cm LVIDd: 4.34 3.9-5.3/4.2-5.9 cm LVIDd Index: 1.78 2.4-3.2/2.2-3.1 cm/m2 LVIDs: 2.69 2.0-3.6 cm LVPWd: 1.25 0.7-1.1 cm Ao Root: 3.60 2.1-3.5 cm LA Diam: 3.30 2.7-3.8/3.0-4.0 cm LAIDs Index: 1.35 1.5-2.3 cm/m2 LV Mass: 250.73 67-162/88-224 g LV Mass Index: 102.76 43-95/49-115 g/m2 LVOT Diam: 2.40 3.0+(-)1.3 cm RVOT Diam: 3.00 1.7-2.3 cm 2D Systolic Function EF 4C: 58.90 >55% EF 2C: 62.50 >55% EF BiP: 60.10 >55% Mitral Valve MV Pk E: 0.76 MV PK A: 0.97 MV Decel Time: 158.00 E/A: 0.80 E'Lateral: 8.38 E'Medial: 5.55 E/E' Med: 13.70 E/E' Lat: 9.00 PHT: 46.00 MVA PHT: 4.78 Decel [place]: 4.79 Aortic Valve AoV Pk Ethan: 1.33 AoV Mn Ethan: 0.86 AoV VTI: 0.25 AoV Pk Grad: 7.00 Aov Mn Grad: 4.00 REA Cont.VTI: 3.16 LVOT LVOT Pk Ethan: 0.82 LVOT Mn Ethan: 0.55 LVOT VTI: 0.17 LVOT Pk Grad: 3.00 LVOT Mn Grad: 1.00 LVOT Diam: 2.40 LVOT Area: 4.52 Diastolic Function MV Pk E: 0.76 MV Pk A: 0.97 E/A: 0.80 E'Medial: 5.55 E/E' Med: 13.70 E' Laterial: 8.38 E/E' Lat: 9.00 Right Ventricle TAPSE (mm): 25.00 TVS' Ethan: 12.00 Tricuspid Valve TR Pk Ethan: 2.00 TR Pk Grad: 16.00 RVOT: 3.00 RVSP: 19.00 Great Vessels Aorta Ao Root-2D: 3.60 2.0-3.7 cm Ao Asc: 3.40 2.1-3.4 cm Pulmonary Valve PV Pk Ethan: 1.26 Peak PV Grad: 6.00 Updated in Other Vendor System with Status of Final Yaniv Vega MD electronically signed on 08/05/2024 4:24:00 PM with status of Final
== END ==
LOC: HO.CARD 07:59
PROVIDERS: PCP Registered Nurse; Visit Provider Nurse Practitioner Family
DX: I77.810 Thoracic aortic ectasia (principal); I10 Essential (primary) hypertension; G47.33 Obstructive sleep apnea (adult) (pediatric)
CPT/HCPCS: 93306

== ENCOUNTER → 2024-08-04 08:02 | Outpatient (BNV) | payer OTHER, SELFPAY | PROVIDERS: PCP Registered Nurse; Visit Provider Internal Medicine | DX: I36.1 Nonrheumatic tricuspid (valve) insufficiency (principal) | CPT/HCPCS: 93306 ==

== ENCOUNTER 2024-10-31 17:25 | Outpatient (REF) | payer OTHER, SELFPAY ==
--- OUTSIDE RECORDS SUMMARY | 2024-10-31 17:27 | XMS_ITS | Encounter Summary ---
Author Organization [employer] Address [address] [place] [address] Care Team Providers Care Board Writer Name Role Phone Hoda Sal NICOLE Primary Care Provider [phone] Encounter Details Date Type Department Care Team (Latest Contact Info) Description 10/31/2024 Travel Social History Tobacco Use Types Packs/Day Years [...] as of this encounter Plan of Treatment Upcoming Encounters Date Type Department Care Team (Late st Contact Info) Description 01/26/2025 9:15 AM EDT Office Visit [facility] [address] [place] [address] Hoda Sal FNP [address] [place] [address] documented as of this encounter Visit Diagnoses Not on filedocumented in this encounter Care Teams Board Writer Relationship Specialty Start Date End Date Hoda Sal FNP [address] [place] [address] PCP - General Family Medicine 12/29/21 documented as of this encounter
[2024-10-31 17:39] LABS: Appearance Urine Clear; Color Urine Yellow; Glucose Urine UA >=1000 mg/dL (Negative); Leukocyte Esterase Urine Negative (Negative); Nitrite Urine Negative (Negative); PH 5.5 (5.0-9.0); Specific Gravity - Urine >= 1.030 (1.005-1.025); UMIC TRIGGER UACC YES; Urine Blood Negative (Negative); Urine Ketones Negative (Negative); Urine Protein Negative (Neg-Trace)
[2024-10-31 17:45] LABS: Bacteria Urine None Seen (None Seen); Hyaline Casts Urine 0-2 /LPF (0-2); RBC Urine 0-2 /HPF (0-2); Squamous Epithelial Cell Urine 0-2 /HPF (0-2); WBC Urine 0-5 /HPF (0-5)
== END 2024-10-31 17:26 | disposition home or self-care (01) ==
LOC: HO.HHCLNP 17:25
PROVIDERS: Visit Provider Registered Nurse
DX: R31.9 Hematuria, unspecified (principal)
CPT/HCPCS: 81001

== ENCOUNTER 2025-01-26 10:16 | Outpatient (REF) | payer OTHER, SELFPAY ==
--- OUTSIDE RECORDS SUMMARY | 2025-01-26 09:15 | XMS_ITS | Encounter Summary ---
Author Organization [employer] Address [address] [place] [address] 7t [place] [address] Care Team Providers Care Eyelet Cutter Name Role Phone Hoda Sal Primary Care Provider [phone] Manuel Martinez Unavailable Reason for Visit * Reason Comments Follow-up Chronic conditions Encounter Details Date Type Department [facility] Team [facility] Description 01/26/2025 9:15 AM EDT Office Visit [facility] CH[facility] MED & PEDS [address] [place], [place] [phone] Hoda Sal FNP [address] [place], [place] [phone] Essential hypertension (Primary Dx); Mixed hyperlipidemia; Dietary counseling; Exercise counseling; Healthcare maintenance; Type 2 diabetes mellitus without complication, without long-term current use of insulin ([facility]/HCC); Obstructive sleep apnea syndrome Social History Tobacco Use Types Packs/Day Years Used Date Smoking Tobacco: Former Cigarettes Smokeless Tobacco: Never Alcohol Use Standard Drinks/Week Comments Never 0 (1 standard drink = 0.6 oz pur e alcohol) Depression Answer Date Recorded Patient Health Questionnaire-9 Score 2 01/26/2025 Patient Health Questionnaire-9 Score 2 01/26/2025 Last PHQ-9: Questionnaire Data Not on file 0 01/26/2025 Housing Stability Answer Date Recorded What is your housing situation today? I have mark carlson 01/26/[address] you li ve. Do you have problems with any of the following? None of the above 01/26/2025 Food Insecurity Answer Date Recorded Within the past 12 months, y ou worried that your food would run out before you got money to buy more: Never True 01/26/2025 Within the past 12 months,th e food you bought just didn't last and you didn't have enough money to get more: Never True Transportation Answer Date Recorded In the past 12 months, has l ack of transportation kept you from medical appts, meetings, work or from getting things needed for daily living? No 01/26/2025 Utilities Answer Date Recorded In the past 12 months, has t he [employer], gas, oil or water company threatened to shut off services in your home? No 01/26/2025 Depression Answer Date Recorded Patient Health Questionnaire-2 Score 0 01/26/2025 Internet Access Answer Date Recorded Internet Access Q1 Yes 01/26/2025 Internet Access Q2 Not on file 01/26/2025 Sex and Gender Information Value Date Recorded Sex Assigned at Male 03/06/2022 10:37 AM EDT Legal Sex Male 10:37 AM EDT Gender Identity Male 03/06/2022 10:37 AM EDT Sexual Orientation Straight 03/06/2022 10 :37 AM EDT documented as of this encounter Last Filed Vital Signs Vital Sign Reading Time Taken Comments Blood Pressure 148/86 01/26/2025 9:35 AM EDT Pulse 78 01/26/2025 9:35 AM EDT Temperature 36.7 C (98.1 F) 01/26/2025 9:35 AM EDT Respiratory Rate 12 01/26/2025 9:35 AM EDT Oxygen Saturation 98% 01/26/2025 9:35 AM EDT Inhaled Oxygen Concentration - - Weight 128 kg (283 lb) 01/26/2025 9:35 AM EDT Height 177.8 cm (5' 10 ) 01/26/2025 9:35 AM EDT Body Mass Index 40.61 01/26/2025 9:35 AM EDT documented in this encounter Functional Status * Over the past 2 weeks, how often have you been bothered by any of the following problems? Question Answer Date of Assessment Author Patient Health Questionnaire -2 Score 0 01/26/2025 9:41 AM EDT Kirby Gastelum, [place] * Little interest or pleasure in doing things Answer Date of Assessment Author Not at all 01/26/2025 9:41 AM EDT [employer] Toyin sanchez [place] * Feeling down, depressed, or hopeless Answer Date of Assessment Author Not at all 01/26/2025 9:41 AM EDT [employer] Toyin sanchez [place] * Trouble falling or staying asleep, or sleeping too much Answer Date of Assessment Author Several days 01/26/2025 9:41 AM EDT [employer] Toyin sanchez MA * Feeling tired or having little energy Answer Date of Assessment Author Not at all 01/26/2025 9:41 AM EDT [employer] Toyin sanchez [place] * Poor appetite or overeating Answer Date of Assessment Author Several days 01/26/2025 9:41 AM EDT [employer] Toyin sanchez [place] * Feeling bad about yourself - or that you are a failure or have let yourself or your family down Answer Date of Assessment Author Not at all 01/26/2025 9:41 AM EDT [employer] Toyin sanchez [place] * Trouble concentrating on things, such as reading the newspaper or watching television Answer Date of Assessment Author Not at all 01/26/2025 9:41 AM EDT Chiquis-Toyin oRque MA * Moving or speaking so slowly that other people could have noticed? Or the opposite - being so fidgety or restless that you have been moving around a lot more than usual. Answer Date of Assessment Author Not at all 01/26/2025 9:41 AM EDT [employer] Toyin sanchez MA * Thoughts that you would be better off or hurting yourself in some way Answer Date of Assessment Author Not at all 01/26/2025 9:41 AM EDT [employer] Toyin sanchez MA * Patient Health Questionnaire-9 Score Answer Date of Assessment Author 2 01/26/2025 9:41 AM EDT [employer] Toyin sanchez MA * How difficult have these problems made it for you to do your work, take care of things at home, or get along with other people? Answer Date of Assessment Author Not difficult at all 01/26/2025 9:41 AM EDT Toyin Borges MA documented as of this encounter Plan of Treatment Upcoming Encounters Date Type Department Care Team (Late st Contact Info) Description 03/09/2025 9:15 AM EST Office Visit [facility] MED & PEDS [address] [place] [address] Patricio Gastelum MD [address] [place] [address] Scheduled Orders Name Type Priority Associated Diagnoses Orde r Schedule Albumin, Random Urine W/Creatinine Lab Routine Type 2 diabetes mellitus without complication, without long-term current use of insulin ([facility]) Expected: 01/26/2025 (Approximate), Expires: 01/26/2026 Lipid Panel, Standard Lab Routine Type 2 diabetes mellitus without complication, without long-term current use of insulin (CMS/HCC) Expected: 01/26/2025 (Approximate), Expires: 01/26/2026 TSH with Reflex to Free T4 Lab Routine Type 2 diabetes mellitus without complication, without long-term current use of insulin (CMS/HCC) Expected: 01/26/2025 (Approximate), Expires: 01/26/2026 Comprehensive Metabolic Panel Lab Routine Type 2 diabetes mellitus without complication, without long-term current use of insulin (CMS/HCC) Expected: 01/26/2025 (Approximate), Expires: 01/26/2026 CBC auto differential Lab Routine Type 2 diabetes mellitus without complication, without long-term current use of insulin (CMS/HCC) Expected: 01/26/2025, Expires: 01/26/2026 Chlamydia/Trichomonas/Neis seria gonorrhoeae, PCR, Urine Lab Routine Healthcare maintenance Expected: 01/26/2025 (Approximate), Expires: 01/26/2026 Hepatitis C Viral RNA, Quantitative, Real-Time PCR Lab Routine Type 2 diabetes mellitus without complication, without long-term current use of insulin (CMS/HCC) Expected: 01/26/2025 (Approximate), Expires: 01/26/2026 RPR (Monitor) with Reflex to Titer Lab Routine Type 2 diabetes mellitus without complication, without long-term current use of insulin (CMS/HCC) Expected: 01/26/2025 (Approximate), Expires: 01/26/2026 HIV-1/2 Antigen and Antibodies, Fourth Generation, with Reflexes Lab Routine Type 2 diabetes mellitus without complication, without long-term current use of insulin ([facility]) Expected: 01/26/2025 (Approximate), Expires: 01/26/2026 Vitamin B12 Lab Routine Type 2 diabetes mellitus without complication, without long-term current use of insulin ([facility]) Expected: 01/26/2025 (Approximate), Expires: 01/26/2026 documented as of this encounter Procedures Procedure Name Priority Date/Time Associated Diagnosis Comments POCT GLYCATED HEMOGLOBIN, TOTAL Routine 01/26/2025 9:37 AM EDT Type 2 diabetes mellitus without complication, without long-term current use of insulin ([facility]) POCT GLUCOSE Routine 01/26/2025 9:37 AM EDT Type 2 diabetes mellitus without complication, without long-term current use of insulin ([facility]) documented in this encounter Results * (ABNORMAL) POCT glucose manually resulted (01/26/2025 9:37 AM EDT) Glucose Blood, POC 213(A) 60 - 200 mg/dL QC Media Lot # Comment:[id number] Lot# Expiration Date Comment:04/25/2025 Blood Capillary blood specimen / Unknown 01/26/2025 9:37 AM EDT Hoda Cloudwordsdickson RADIOLOGY SPECIAL PROCEDURE TECH POINT OF CARE TEST ENTER/EDIT ORDERABLES Final Result * (ABNORMAL) POCT A1c (01/26/2025 9:37 AM EDT) Hemoglobin A1C 10.0(A) 4.0 - 5.7 % QC Media Lot # Comment:[id number] Lot# Expiration Date Comment:08/11/2026 Blood 01/26/2025 9:37 AM EDT us Carrionnikhil Killiandickson RADIOLOGY SPECIAL PROCEDURE TECH POINT OF CARE TEST ENTER/EDIT ORDERABLES Final Result documented in this encounter Visit Diagnoses Diagnosis Essential hypertension- Primary Unspecified essential hypertension Mixed hyperlipidemia Dietary counseling Dietary surveillance and counseling Exercise counseling Healthcare maintenance Type 2 diabetes mellitus without complication, without long-term current use of insulin ([facility]) Obstructive sleep apnea syndrome Obstructive sleep apnea (adult) (pediatric) documented in this encounter Additional Health Concerns Assessment Noted Time PHQ-9 Depression Total Score: 2 01/27/20 25 9:41 AM EDT documented as of this encounter Care Teams Eyelet Cutter Relationship Specialty Start Date End Date Hoda Sal FNP [address] [place] [address] PCP - General Family Medicine 12/29/21 Manuel Martinez [address] [place] [address] 3rd [place] [address] Cardiology 11/10/24 documented as of this encounter
--- OUTSIDE RECORDS SUMMARY | 2025-01-26 12:35 | XMS_ITS | Encounter Summary ---
Author Organization [employer] Address [address] [facility] 7t [place] [address] Care Team Providers Care Liquefied Petroleum Gasfitter Name Role Phone Hoda Sal NICOLE Primary Care Provider [phone] Manuel Martinez Unavailable Encounter Details Date Type Department Care Team (Late st Contact Info) Description 05/08/2024 Orders Only [facility] CHC MED & PEDS [address] [place], [place] [phone] ProviderNilay MD Social History Tobacco Use Types Packs/Day Years Used Date Smoking Tobacco: Former Cigarettes Smokeless Tobacco: Never Alcohol Use Standard Drinks/Week Comments Never 0 (1 standard drink = 0.6 oz pur e alcohol) Housing Stability Answer Date Recorded What is your housing situation today? I have markfarhana carlson 02/19/[address] you [...] Description 03/09/2025 9:15 AM EST Office Visit [facility] CHC MED & PEDS [address] [place] [address] Patricio Gastelum MD [address] [place] [address] documented as of this encounter Procedures Procedure Name Priority Date/Time Associated Diagnosis Comments HM COLONOSCOPY Routine 04/29/2024 3:31 PM EST documented in this encounter Results * Hm Colonoscopy (04/29/2024 3:31 PM EST) Historical Provider HEALTH MAINTENANCE Final Result documented in this encounter Visit Diagnoses Not on filedocumented in this encounter Care Teams Liquefied Petroleum Gasfitter Relationship Specialty Start Date End Date Hoda Sal FNP [address] [place] [address] PCP - General Family Medicine 12/29/21 Manuel Martinez [address] [place] [address] Drive 3rd [place] [address] Cardiology 11/10/24 documented as of this encounter
--- OUTSIDE RECORDS SUMMARY | 2025-01-26 12:35 | XMS_ITS | Encounter Summary ---
Author Organization [employer] Address [address] [facility] 7t [place] [address] Care Team Providers Care Edger Runner Name Role Phone Hoda Sal NICOLE Primary Care Provider [phone] Manuel Martinez Unavailable Encounter Details Date Type Department Care Team (Latest Contact Info) Description 01/26/2025 Travel Social History Tobacco Use Types Packs/Day [...] AM EDT documented as of this encounter Functional Status * Over the past 2 weeks, how often have you been bothered by any of the following problems? Question Answer Date of Assessment Author Patient Health Questionnaire -2 Score 0 01/26/2025 9:41 AM EDT Kirby Gastelum MA * Little interest or pleasure in doing things Answer Date of Assessment Author Not at all 01/26/2025 9:41 AM EDT [employer] Toyin sanchez MA * Feeling down, depressed, [...] AM EDT [employer] Toyin sanchez MA * Poor appetite or overeating Answer Date of Assessment Author Several days 01/26/2025 9:41 AM EDT [employer] Toyin sanchez MA * Feeling bad about yourself - or that you are a failure or have let yourself or your family down Answer Date of Assessment Author Not at all 01/26/2025 9:41 AM EDT [employer] Toyin sanchez MA * Trouble concentrating on things, such as reading the newspaper or watching television Answer Date of Assessment Author Not at all 01/26/2025 9:41 AM EDT [employer] Toyin sanchez MA * Moving or speaking so slowly that other people could have noticed? Or the opposite - being so fidgety or restless that you have been moving around a lot more than usual. Answer Date of Assessment Author Not at all 01/26/2025 9:41 AM EDT Toyin Middleton MA * Thoughts that you would be better off or hurting yourself in some way Answer Date of Assessment Author Not at all 01/26/2025 9:41 AM EDT Toyin Middleton MA * Patient Health Questionnaire-9 Score Answer Date of Assessment Author 2 01/26/2025 9:41 AM EDT Toyin Middleton MA * How difficult have these problems [...] Description 03/09/2025 9:15 AM EST Office Visit [facility] CHC MED & PEDS [address] [place] [address] Patricio Gastelum MD [address] [place] [address] documented as of this encounter Visit Diagnoses Not on filedocumented in this encounter Additional Health Concerns Assessment Noted Time PHQ-9 Depression Total Score: 2 01/27/20 9:41 AM EDT documented as of this encounter Care Teams Edger Runner Relationship Specialty Start Date End Date Hoda Sal FNP [address] [place] [address] PCP - General Family Medicine 12/29/21 Manuel Martinez [address] [place] [address] 3rd [place] [address] Cardiology 11/10/24 documented as of this encounter
--- OUTSIDE RECORDS SUMMARY | 2025-01-26 12:35 | XMS_ITS | Encounter Summary ---
Author Organization [employer] Address [address] [facility] 7t [place] [address] Care Team Providers Care Lactation Consultant Name Role Phone Hoda Sal Primary Care Provider [phone] Manuel Martinez Unavailable Reason for Visit * Reason Comments Med Refill Encounter Details Date Type Department Care Team ([facility] st Contact Info) Description 04/16/2023 Refill [facility] MEDICINE [address] [place] [address] Hoda Sal FNP [address] [place], [place] [phone] Type 2 diabetes mellitus without complication, without long-term current use of insulin ([facility]) Social History Tobacco Use Types [...] Description 03/09/2025 9:15 AM EST Office Visit [facility] CHC MED & PEDS [address] [place], [place] [phone] Patricio Gastelum MD [address] [place] [address] documented as of this encounter Visit Diagnoses Diagnosis Type 2 diabetes mellitus without complication, without long-term current use of insulin ([facility]) documented in this encounter Care Teams Lactation Consultant Relationship Specialty Start Date End Date Hoda Sal FNP [address] [place] [address] PCP - General Family Medicine 12/29/21 Manuel Martinez [address] [place] [address] 3rd [place] [address] Cardiology 11/10/24 documented as of this encounter
--- OUTSIDE RECORDS SUMMARY | 2025-01-26 12:35 | XMS_ITS | Clinical Summary ---
Author Organization [address] [facility] Address [address] [place] [address] Phone Care Team Providers Care Boat Hop Name Role Phone Physician, Pcp Unknown Primary Care Provider Telma vailable Social History Tobacco Use Types Packs/Day Years Used Date Smoking Tobacco: Never Assessed Sex and Gender Information Value Date Recorded Sex Assigned at Not on file Legal Sex Male 8:12 AM EDT Gender Identity Not on file Sexual Orientation Not on file Plan of Treatment Upcoming Encounters Date Type Department Care Team ([facility] Contact Info) Description 02/05/2025 9:15 AM EDT Consult Orthopedic Surgery - [place] [address] [address] Moiz Simpson, DPM [address] [address] Health Maintenance Due Date Last Done Comments DTaP,Tdap,and Td Vaccines (1 - Tdap) 1989 Hepatitis B Vaccines (1 of 3 - 19+ 3-dose series) 1989 Pneumococcal Vaccine: 50+ Ye ars (1 of 1 - PCV) 01/07/2020 Zoster Vaccines (1 of 2) 01/07/2020 Depression Screening 05/07/2024 Cholesterol Screening (Lipid Panel) 11/12/2024 Colorectal Cancer Screening: Colonoscopy 11/12/2024 HIV Screening 11/12/2024 Hepatitis C Screening 11/12/2024 Social Influencers of Health Screening 11/12/2024 COVID-19 Vaccine (1 - 2023-2 5 season) 2025 Influenza Vaccine (#1) 2025 RSV Immunization Adult Patie nts (1 - 1-dose 75+ series) 2045 HIB Vaccines Aged Out No longer eligi [...] on patient's age to complete this topic MMR Vaccines Aged Out No longer eligi ble based on patient's age to complete this topic Meningococcal ACWY Vaccine Aged Out N o longer eligible based on patient's age to complete this topic Meningococcal B Vaccine Aged Out No l onger eligible based on patient's age to complete this topic RSV Immunization Patients Un raji 20 months Aged Out No longer eligible b ased on patient's age to complete this topic Varicella Vaccines Aged Out No longer eligible based on patient's age to complete this topic Insurance [facility] [place] [address] Care Teams Boat Hop Relationship Specialty Start Date End Date Physician, Pcp Unknown PCP - General 11/12/24
--- OUTSIDE RECORDS SUMMARY | 2025-01-26 12:35 | XMS_ITS | Encounter Summary ---
Author Organization [employer] Address [address] [place] [address] 7t [place] [address] Care Team Providers Care Pershing Missile Crewmember Name Role Phone Hoda Sal Primary Care Provider [phone] Manuel Martinez Unavailable Reason for Visit * Reason Comments Med Refill Encounter Details Date Type Department Care Team ([facility] Contact Info) Description 10/07/2024 Refill [facility] CHC MED & PEDS [address] [place], [place] [phone] Hoda Sal FNP [address] [place] [address] Mixed hyperlipidemia Social History Tobacco Use Types [...] Description 03/09/2025 9:15 AM EST Office Visit [facility] MED & PEDS [address] [place] [address] Patricio Gastelum MD [address] [place] [address] documented as of this encounter Visit Diagnoses Diagnosis Mixed hyperlipidemia documented in this encounter Care Teams Pershing Missile Crewmember Relationship Specialty Start Date End Date Hoda Sal FNP [address] [place] [address] PCP - General Family Medicine 12/29/21 Manuel Martinez [address] [place] [address] 3rd [place] [address] Cardiology 11/10/24 documented as of this encounter
--- OUTSIDE RECORDS SUMMARY | 2025-01-26 12:35 | XMS_ITS | Encounter Summary ---
Author Organization [employer] Address [address] [place] [address] 7t [place] [address] Care Team Providers Care Auto Body Shop Manager Name Role Phone Hoda Sal Primary Care Provider [phone] Manuel Martinez Unavailable Reason for Visit * Reason Onset Date Comments Chart Prep 01/23/2025 Encounter Details Date Type Department Care Team ([facility] st Contact Info) Description 01/23/2025 Telephone [facility] CHC MED & PEDS [address] [place] [address] Hoda Sal FNP [address] [place], [place] [phone] Chart Prep Social History Tobacco Use Types Packs/Day Years [...] encounter Miscellaneous Notes * Telephone Encounter - Ana Paula Alexandra MA - 01/23/2025 1:07 PM EDT Chart Prep Labs: done Images: done Referrals: complete Vaccines due: Covid and Flu Screenings: eye exam and foot exam Overdue care gaps: A1c, Glucose, SBIRT, SDOH, PHQ-9, and Disability screen, Tabacco documented in this encounter Plan of Treatment Upcoming Encounters Date Type Department Care Team (Late st Contact Info) Description 03/09/2025 9:15 AM EST Office Visit [facility] CHC MED & PEDS [address] [place] [address] Patricio Gastelum MD [address] [place] [address] documented as of this encounter Visit Diagnoses Not on filedocumented in this encounter Care Teams Auto Body Shop Manager Relationship Specialty Start Date End Date Hoda Sal FNP [address] [place] [address] PCP - General Family Medicine 12/29/21 Manuel Martinez [address] [place] [address] Drive 3rd [place] [address] Cardiology 11/10/24 documented as of this encounter
--- OUTSIDE RECORDS SUMMARY | 2025-01-26 12:35 | XMS_ITS | Encounter Summary ---
Author Organization [employer] Address [address] [place] [address] 7 [place] [address] Care Team Providers Care Chef Saucier Name Role Phone Hoda Sal Primary Care Provider [phone] Manuel Martinez Unavailable Reason for Visit * Reason Onset Date Comments Appointment Request 12/18/2022 Encounter Details Date Type Department Care Team ([facility] st Contact Info) Description 12/18/2022 Telephone [facility] MEDICINE [address] [place] [address] Hoda Sal FNP [address] [place], [place] [phone] Appointment Request Social History Tobacco Use Types [...] TP on 12/19/2022. Please contact pt at [phone] [facility] Speaker documented in this encounter Plan of Treatment Upcoming Encounters Date Type Department Care Team (Late st Contact Info) Description 03/09/2025 9:15 AM EST Office Visit [facility] CHC MED & PEDS [address] [place] [address] Patricio Gastelum MD [address] [place] [address] documented as of this encounter Visit Diagnoses Not on filedocumented in this encounter Care Teams Chef Saucier Relationship Specialty Start Date End Date Hoda Sal FNP [address] [place] [address] PCP - General Family Medicine 12/29/21 Manuel Martinez [address] [place] [address] 3rd [place] [address] Cardiology 11/10/24 documented as of this encounter
--- OUTSIDE RECORDS SUMMARY | 2025-01-26 12:35 | XMS_ITS | Clinical Summary ---
Author Organization [employer] Address [address] [place] [address] 7t [place] [address] Care Team Providers Care Etcher Photoengraving Name Role Phone Hoda Sal NICOLE Primary Care Provider [phone] JuanDustyr Unavailable Allergies Active Allergy Reactions Criticality Noted Date Comments Aspirin Hives High 07/23/2020 Other reaction(s): Facial swelling, Hives / Skin Rash Cortisone Hives High 07/23/2020 Other reaction(s): Swollen ear canal following topical drops Medications Spacer/Aero-Holdin g Chambers (OptiChamber Emerita) misc 1 each every 4 (four) hours if needed (asthma). 1 each 3 Active albuterol 108 (90 Base) MCG/ACT inhaler Inhale 2 puffs every 4 (four) hours. 18 g 2 3 Active glucose blood (FREESTYLE LITE) test stripIndications:T ype 2 diabetes mellitus without complication, without long-term current use of insulin (CMS/[facility]) 1 each by Other route every 12 (twelve) hours. 100 each 11 4 Active omega-3 acid ethyl esters (Lovaza) 1 g capsuleIndications :Mixed hyperlipidemia Take 1 capsule (1 g) by mouth in the morning. 90 capsule 3 4 Active Lancets miscIndications:Ty pe 2 diabetes mellitus without complication, without long-term current use of insulin (CMS/HCC) 1 each 2 times daily. 180 each 3 4 Active Alcohol Swabs padsIndications:Ty pe 2 diabetes mellitus without complication, without long-term current use of insulin ([facility]) 1 each 2 times daily. 100 each 11 4 Active Jardiance 25 MGIndications:Type 2 diabetes mellitus without complication, without long-term current use of insulin ([facility]) TAKE 1 TABLET BY MOUTH ONCE DAILY IN THE MORNING FOR DIABETES 90 tablet 3 5 Active carvedilol (Coreg) 6.25 MG tabletIndications: Type 2 diabetes mellitus without complication, without long-term current use of insulin ([facility]) TAKE 1 TABLET BY MOUTH TWICE DAILY MUST TAKE WITH A MEAL/FOOD 180 tablet 2 5 Active atorvastatin (Lipitor) 40 MG tabletIndications: Mixed hyperlipidemia Take 1 tablet (40 mg) by mouth at bedtime. (Cholesterol) 90 tablet 3 5 Active glipiZIDE XL (Glucotrol XL) 10 MG 24 hr tabletIndications: Type 2 diabetes mellitus without complication, without long-term current use of insulin ([facility]) TAKE 1 TABLET BY MOUTH ONCE DAILY WITH BREAKFAST FOR DIABETES 90 tablet 3 5 Active lisinopril-hydroCH LOROthiazide 20-25 MG tabletIndications: Essential hypertension TAKE 1 TABLET BY MOUTH ONCE DAILY FOR HIGH BLOOD PRESSURE 90 tablet 3 5 Active metFORMIN XR (Glucophage-XR) 500 MG 24 hr tabletIndications: Type 2 diabetes mellitus without complication, without long-term current use of insulin ([facility]) TAKE 2 TABLETS BY MOUTH WITH BREAKFAST AND 2 TABLETS WITH EVENING MEAL 360 tablet 3 5 Active glipiZIDE XL (Glucotrol XL) 10 MG 24 hr tablet Take by mouth. 1 Active Tirzepatide (Mounjaro) 2.5 MG/0.5ML solution auto-injector Inject 2.5 mg under the skin 1 (one) time per week. 2 mL 1 5 02/26/20 25 Active Active Problems Problem Noted Date Diagnosed Date Chest pain 01/26/2025 HEADLEY (dyspnea on exertion) 01/26/2025 Fatigue 01/26/2025 Gastroenteritis 01/26/2025 Mild dilation of ascending aorta 01/26/2025 Obesity with body mass index 30 or greater 01/26 Snoring 01/26/2025 Hypertension 01/26/2025 Pre-operative cardiovascular examination 025 Diabetes mellitus 01/26/2025 Type 2 diabetes mellitus 01/26/2025 Healthcare maintenance 05/11/2023 Overview (01/25/2025): Last PE: 05/11/23 PSA: pending Colonoscopy: 04/29/24 at [facility] (Dr. Santo). Repeat 5 years d/t tubular adenoma Essential hypertension 05/30/2022 Overview (01/25/2025): -Following with [facility] -Continues lisinopril-hydrochlorothiazide 20-25mg daily -Continues Carvedilol 6.25mg BID -Continue monitoring at home, with goal <130/80 mmHg -TTE August 2022: EF 65-70% Encourage lifestyle interventions including: Low fat diet rich in fruits and vegetables Maintaining healthy weight Limiting dietary sodium with a goal <1500mg/day Increasing activity with goal of 150 mins of aerobic exercise per week Reviewed ED precautions Assessment & Plan (11/10/2024 10:36 AM EDT): - Cont following with specialist Assessment & Plan (09/06/2023 9:14 AM EDT): [...] to follow up appt Hyperlipidemia 05/30/2022 Overview (11/10/2024): Lab Results Component Value Date TRIG 389 (H) 01/15/2024 TRIG 474 (H) 04/24/2023 TRIG 1,126 (H) 05/31/2022 -No known history of pancreatitis -Following with [facility] Cards - Dr. Martinez. -Unable to tolerate SE rosuvastatin (dizziness) -Cont atorvastatin 40mg daily and omega-3 through Cards -Encouraged dietary modifications, monitor for signs of pancreatitis and other ED precautions. Assessment & Plan (11/10/2024 10:36 AM EDT): - Cont with current therapy Assessment & Plan (09/03/2023 8:33 AM EDT): Continue with medication, recheck lipids Assessment & Plan (06/01/2022 12:43 PM EST): Continue with medication, recheck lipids Mild intermittent asthma 05/30/2022 Assessment & Plan (05/17/2023 5:17 PM EST): Well controlled, using albuterol <2x/week Cont albuterol PRN Obstructive sleep apnea syndrome 03/10/2021 Assessment & Plan (11/10/2024 10:38 AM EDT): -Previously with CPAP nightly, due for titration study -Titration study order sent 05/17/23 -Titration study order re-sent on 11/10/24 Assessment & Plan (05/17/2023 5:17 PM EST): -Continues with CPAP nightly, due for titration study -Titration study order sent 05/17/23 Type 2 diabetes mellitus without complication Overview (01/26/2025): Lab Results Component Value Date HGBA1C 10.0 (A) 01/26/2025 HGBA1C 11.2 (A) 10/31/2024 HGBA1C 10.3 (A) 09/03/2023 HGBA1C 8.5 (H) 05/31/2022 HGBA1C 8.0 (H) 05/26/2021 Med regimen: -Metformin 1000mg BID -Empagliflozin 25mg daily -Glipizide 10mg daily Assessment & Plan (11/10/2024 10:37 AM EDT): -A1c above goal -Discussed options for improved BG control and potential sequela of poorly controlled T2DM. He would like to first focus on reducing daily carb intake and walking more consistently. Repeat A1c in 3 mo. If continues to be elevated, will then pursue changes in med management -Follow up in 3 months to determine if med changes indicated Assessment & Plan (09/06/2023 9:12 AM EDT): [...] Encounters Date Type Department Care Team Description 01/26/2025 9:15 AM EDT Office Visit [facility] [address] [place] [address] Hoda Sal FNP Essential hypertension (Primary Dx); Mixed hyperlipidemia; Dietary counseling; Exercise counseling; Healthcare maintenance; Type 2 diabetes mellitus without complication, without long-term current use of insulin ([facility]); Obstructive sleep apnea syndrome 01/26/2025 Travel 01/23/2025 Telephone [facility] [address] [place] [address] Hoda Sal FNP Chart Prep 11/03/2024 Results Follow-Up [facility] [address] [place] [address] Hoda Sal FNP Urinalysis, Complete, with Reflex to Culture 10/31/2024 11:00 AM EDT Office Visit [facility] [address] [place] [address] Hoda Sal FNP Type 2 diabetes mellitus without complication, without long-term current use of insulin ([facility]) (Primary Dx); Mixed hyperlipidemia; Essential hypertension; Hematuria, unspecified type; Healthcare maintenance; Obstructive sleep apnea syndrome; Ingrown nail of great toe 10/31/2024 Orders Only [facility] [address] [place] [address] Hoda Sal FNP 10/31/2024 Travel from Last 3 Months Immunizations Immunization Administration Dates Next Due Hep B, adult 06/24/2021,02/18/2021,12/15/2020 Influenza Injectable Quadriv alant Preservative Free IIV4 MDCK 02/18/2021 Influenza injectable quadriv alent preservative free 05/11/2023 Pfizer Covid-19 Vaccine 12+ 05/11/2023 Pneumococcal Conjugate PCV 20 05/11/2023 Pneumococcal Polysaccharide PPSV23 07/26/2021, Tdap 12/15/2020,06/12/2018 Zoster, Recombinant 01/14/2021,11/12/2020 Family History Medical History [...] Mass Index 40.61 01/26/2025 9:35 AM EDT Plan of Treatment Upcoming Encounters Date Type Department Care Team (Late st Contact Info) Description 03/09/2025 9:15 AM EST Office Visit [facility] [address] [place], [place] [phone] Patricio Gastelum MD [address] [place] [address] Health Maintenance Due Date Last Done Comments CT Colonography 1970 FIT DNA/Cologuard 1970 FIT 1970 FOBT 1970 Sigmoidoscopy 1970 Diabetes: Foot Exam 01/07/1980 Eye Exam 01/07/1980 Diabetes: Urine Protein Screening 11/12/2021 11/12/2020 COVID-19 Vaccine ( season) 2025 05/11/2023, 06/17/2021, 08/09/2020, Additional history exists Influenza Vaccine (#1) 2025 05/11/2023, 2020 Lipid Panel 01/14/2025 01/15/2024, 09/05, 04/24/2023, Additional history exists Tobacco Screening 01/21/2025 01/22/2024 Diabetes: Hemoglobin A1C 04/27/2025 025, 10/31/2024, 09/03/2023, Additional history exists Alcohol/Substance Use Screening 01/26/2026 01/26/2025 Depression Screening 01/26/2026 01/26/2025, 01/27/20 25 Disability Screening 01/26/2026 01/26/2025 SDOH Screening 01/26/2026 01/26/2025 Colonoscopy 04/29/2029 04/29/2024 Colorectal Cancer Screening 04/29/2029 [...] Name Priority Date/Time Associated Diagnosis Comments POCT GLUCOSE Routine 01/26/2025 9:37 AM EDT Type 2 diabetes mellitus without complication, without long-term current use of insulin (CMS/HCC) POCT GLYCATED HEMOGLOBIN, TOTAL Routine 01/26/2025 9:37 AM EDT Type 2 diabetes mellitus without complication, without long-term current use of insulin (CMS/HCC) POCT URINALYSIS DIPSTICK Routine 10/31/2024 12:04 PM EDT Hematuria, unspecified type POCT GLYCATED HEMOGLOBIN, TOTAL Routine 10/31/2024 11:25 AM EDT Type 2 diabetes mellitus without complication, without long-term current use of insulin (CMS/HCC) POCT GLUCOSE Routine 10/31/2024 11:24 AM EDT Type 2 diabetes mellitus without complication, without long-term current use of insulin (CMS/HCC) URINALYSIS, COMPLETE, WITH REFLEX TO CULTURE Routine 10/31/2024 12:00 AM EDT HM COLONOSCOPY Routine 04/29/2024 3:31 PM EST LIPID PANEL, STANDARD Routine 01/15/2024 9:10 AM EDT HEPATITIS C AB W/REFL TO HCV RNA, QN, PCR Routine 05/31/2022 8:47 AM EST Routine health maintenance HIV 1 RNA, QN PCR W/RFL ADA (RTI,PI,INTEGRASE) Routine 05/31/2022 8:47 AM EST Routine health maintenance ALBUMIN, RANDOM URINE W/CREATININE Routine 11/12/2020 10:17 AM EDT from Last 3 Months or Most Recently Relevant to Health Maintenance Results * (ABNORMAL) POCT A1c (01/26/2025 9:37 AM EDT) Only the most recent of2 resultswithin the time period is included. Hemoglobin A1C 10.0(A) 4.0 - 5.7 % QC Media Lot # Comment:[id number] Lot# Expiration Date Comment:08/11/2026 Blood 01/26/2025 9:37 AM EDT [facility] POINT OF CARE TEST ENTER/EDIT ORDERABLES Final Result * (ABNORMAL) POCT glucose manually resulted (01/26/2025 9:37 AM EDT) Only the most recent of2 resultswithin the time period is included. Glucose Blood, POC 213(A) 60 - 200 mg/dL QC Media Lot # Comment:[id number] Lot# Expiration Date Comment:04/25/2025 Blood Capillary blood specimen / Unknown 01/26/2025 9:37 AM EDT [employer] [facility] POINT OF CARE TEST ENTER/EDIT ORDERABLES Final Result * (ABNORMAL) POCT urinalysis dipstick manually resulted (10/31/2024 12:04 PM EDT) Color, UA Yellow Clarity, UA Clear Glucose, UA 4+ >500 Comment:1000 mg/dL Bilirubin, UA Negative Ketones, UA Negative Spec Grav, UA 1.015 Blood, UA Positive(A) Negative, None Detected Comment:trace-intact pH, UA 5.5 Protein, UA Negative Urobilinogen, UA 0.2 Leukocytes, UA Negative Negative, Rare, Trace Nitrite, UA Negative Negative, None Detected Appearance, UA clear QC Media Lot # Comment:[id number] Lot# Expiration Date Comment:02/03/2025 Urine 10/31/2024 12:0 4 PM EDT Hoda Sal [facility] POINT OF CARE TEST ENTER/EDIT ORDERABLES Final Result * (ABNORMAL) Urinalysis, Complete, with Reflex to Culture (10/31/2024 12:00 AM EDT) Color Urine Yellow [facility] Appearance Urine Clear [facility] PH 5.5 5.0 - 9.0 [facility] Glucose Urine UA >=1000(A) Negative mg/dL [facility] Urine Blood Negative Negative [facility] Specific [place] - Urine >=1.030(H) 1.005 - 1.025 [facility] Urine Protein Negative Neg-Trace mg/dL [facility] Urine Ketones Negative Negative mg/dL [facility] Nitrite Urine Negative Negative [facility] Leukocyte Esterase Urine Negative Negative [facility] RBC Urine 0-2 0 - 2 /HPF [facility] Urine WBC 0-5 0 - 5 /HPF [facility] Urine Squamous Epithelial Cell 0-2 0 - 2 /HPF [facility] Urine Bacteria None Seen None Seen [facility] Hyaline Casts, Urine 0-2 0 - 2 /LPF [facility] 10/31/2024 10/31/2024 Narrative [facility] - 10/31/2024 5:52 PM EDT Urine, Clean Catch Hoda Sal [facility] URINE ORDERABLES Final Res ult [facility] [address] [place] [phone] * Hm Colonoscopy (04/29/2024 3:31 PM EST) us Historical Provider MD HEALTH MAINTENANCE Final Result * (ABNORMAL) Lipid Panel, Standard (01/15/2024 9:10 AM EDT) Triglycerides 389(H) <150 mg/dL [facility] Comment:Desirable Triglyceri de: less than 150 mg/dLBorderline High Triglyceride 150-199 mg/dLHigh Triglyceride: 200-499 mg/dLVery High Triglyceride: greater than or equal to 5OO mg/dL Cholesterol 145 <200 mg/dL [facility] Comment:Desirable Cholestero l: less than 200 mg/dLBorderline High Cholesterol: 200-239 mg/dLHigh Cholesterol: greater than 239 mg/dL LDL Cholesterol Calculated 41 <100 mg/dL [facility] Comment:Desirable LDL: less than 100 mg/dLNear Optimal/Above Optimal LDL: 110- 129 mg/dLBorderline High LDL: 130-159 mg/dLHigh LDL: 160-189 mg/dLVery High LDL: greater than or equal to 190 mg/dL HDL Cholesterol 27(L) >40 mg/dL [facility] Comment:Desirable HDL: great er than 40 mg/dL Note: This HDL assay may give artificially low results in patients with liver disease. 01/15/2024 9:10 AM EDT 01/15/2024 9:10 AM EDT us Generic External Data Provider LAB BLOOD ORDERAB LES Final Result [facility] [address] [place] [phone] * HIV-1 RNA, Quantitative, Real-Time PCR with Reflex to Genotype (RTI, PI, Integrase) (05/31/2022 8:47 AM EST) HIV 1 RNA, QN PCR NOT DETECTED copies/mL [facility], HIV 1 RNA, QN PCR NOT DETECTED Log copies/mL [facility], Comment: REFERENCE RANGE: NOT DETECTED copies/mL NOT DETECTED Log copies/mL This test was performed using Real-Time Polymerase Chain Reaction. Reportable range is 20 to 10,000,000 copies/mL (1.30-7.00 Log copies/mL). 05/31/2022 8:47 AM EST 05/31/2022 8:47 AM EST Narrative [facility] - 06/03/2022 12:31 AM EST FASTING:YES FASTING: YES Hoda Sal [facility] LAB BLOOD ORDERABLES Final Res ult Performing Organization Address [facility] Co de Phone Number [employer] [address] [place] [address], [facility] [place] [address] [employer] [facility], [address] [place] [address] * Hepatitis C Antibody with Reflex to HCV, RNA, Quantitative, Real-Time PCR (05/31/2022 8:47 AM EST) Hepatitis C Antibody NON-REACT CANDE NON-REACT CANDE [facility] Index <0.02 <1.00 [facility] Comment: HCV antibody was non-reactive. There is no laboratory evidence of HCV infection. In most cases, no further action is required. However, if recent HCV exposure is suspected, a test for HCV RNA (test code 99338) is suggested. For additional information please refer to http://education.[employer]/faq/LHC60f6 (This link is being provided for informational/ educational purposes only.) Blood Venous blood specimen / Unknown 05/31/2022 8:47 AM EST 05/31/2022 8:47 AM EST Narrative [facility] - 06/03/2022 12:31 AM EST FASTING:YES FASTING: YES Hoda Sal [facility] LAB BLOOD ORDERABLES Final Res ult Performing Organization Address [facility]/ZIP Co de Phone Number [employer] [address] [place] [address], [place] [address] [facility] [address], ([address]) [place] [address] * ALBUMIN, RANDOM URINE W/CREATININE (11/12/2020 10:17 AM EDT) Microalbumin Urine 1.2 See Note: mg/dL [facility] Comment: Reference Range: Reference Range Not established Microalb/Creat Ratio 21 <30 mcg/mg creat [facility] Comment: The ADA defines abnormalities in albumin excretion as follows: Category Result (mcg/mg creatinine) Normal <30 Microalbuminuria 30-299 Clinical albuminuria > OR = 300 The ADA recommends that at least two of three specimens collected within a 3-6 month period be abnormal before considering a patient to be within a diagnostic category. Creatinine, Urine 57 20 - 320 mg/dL [facility] 11/12/2020 10:1 7 AM EDT us Jaida Espitia NP LAB URINE ORDERABLES Final Resu lt [facility] [address] from Last 3 Months or Most Recently Relevant to Health Maintenance Insurance [facility] 3 Care Teams Etcher Photoengraving Relationship Specialty Start Date End Date Hoda Sal FNP [address] [place] [phone] PCP - General Family Medicine 12/29/21 Manuel Martinez [address] [place] [address] [address] [place] [address] Cardiology 11/10/24
[2025-01-26 14:21] LABS: MANUAL DIFF FLAG NO
[2025-01-26 14:32] LABS: Hematocrit 45.3 % (42.0-52.0); Hemoglobin 14.5 g/dl (14.0-18.0); Imm Gran Abs Auto 0.05 X10*3/uL (0.00-0.03); Imm Gran Pct Auto 0.7 % (0.0-0.4); Lymphocytes Absolute Auto 1.8 X10*3/uL (1.2-4.9); Mean Corpuscular HGB Conc 32.0 g/dl (31.0-36.0); Mean Corpuscular Hemoglobin 25.0 pg (27.0-33.0); Mean Corpuscular Volume 78.0 fL (80.0-98.0); NRBC Abs Auto 0.000 X10*3/uL (0.0-0.012); NRBC Pct Auto 0.0 /100WBC (0.0-0.2); Platelet Count 220 X10*3/uL (160-400); Red Blood Count 5.81 X10*6/uL (4.60-5.80); White Blood Count 7.3 X10*3/uL (4.8-10.8)
[2025-01-26 14:35] LABS: Microalbum/Creatinine Ratio Ur 23.6 ug/mg cr (<30)
[2025-01-26 14:42] LABS: Alanine Aminotransferase 54 U/L (0-40); Albumin Level 4.8 g/dL (3.5-5.0); Alkaline Phosphatase 59 U/L (39-117); Anion Gap 12 (12-20); Aspartate Amino Transferase 35 U/L (5-37); Blood Urea Nitrogen 19 mg/dL (9-16); Calcium 9.6 mg/dL (8.4-10.2); Carbon Dioxide 27 mmol/L (22-29); Chloride 101 mmol/L (96-108); Cholesterol 161 mg/dL (<200); Estimated Glomerular Filt Rate > 60; HDL Cholesterol 27 mg/dL (>40); Potassium 4.1 mmol/L (3.3-5.1); Sodium 136 mmol/L (135-145); Total Protein 8.0 g/dL (6.5-8.0); Triglycerides 428 mg/dL (<150)
[2025-01-26 15:00] LABS: Vitamin B12 612 pg/mL (200-900)
[2025-01-26 16:49] LABS: CT PCR Urine NOT DETECTED (Not Detect.); NG PCR Urine NOT DETECTED (Not Detect.)
[2025-01-27 14:02] LABS: HIV Num 1 0.05 S/CO (0.00-0.99)
[2025-01-28 15:24] LABS: HCV Log PCR <1.18 NOT DETECTED Log IU/mL (NOT DETECTED); HepC Viral Load <15 NOT DETECTED IU/mL (NOT DETECTED)
== END 2025-01-26 10:17 | disposition home or self-care (01) ==
LOC: HO.CHCLDS 10:16
PROVIDERS: Visit Provider Registered Nurse
DX: Z00.00 Encounter for general adult medical examination without abnormal findings (principal); Z11.3 Encounter for screening for infections with a predominantly sexual mode of transmission; Z11.8 Encounter for screening for other infectious and parasitic diseases; Z11.4 Encounter for screening for human immunodeficiency virus [HIV]; E11.9 Type 2 diabetes mellitus without complications
CPT/HCPCS: 80053; 80061; 82043; 82570; 82607; 84443; 85025; 86592; 87389; 87491; 87522; 87591

== ENCOUNTER → 2025-04-17 19:30 | Outpatient (BNV) | payer OTHER, SELFPAY | PROVIDERS: PCP Registered Nurse; Visit Provider Internal Medicine | DX: G47.33 Obstructive sleep apnea (adult) (pediatric) (principal) | CPT/HCPCS: 95811 ==

== ENCOUNTER → 2025-04-17 20:30 | Outpatient (REF) | payer OTHER, SELFPAY ==
--- OUTSIDE RECORDS SUMMARY | 2025-04-17 21:44 | XMS_ITS | Encounter Summary ---
Author Organization [employer] Address [address] [place] [address] 7t [place] [address] Care Team Providers Care Manager Recruitment Name Role Phone Hoda Sal Primary Care Provider [phone] Manuel Martinez Unavailable Reason for Visit * Reason Onset Date Comments Chart Prep 04/17/2025 Encounter Details Date Type Department Care Team ([facility] st Contact Info) Description 04/17/2025 Telephone [facility] [address] [place] [address] Hoda Sal FNP [address] [place], [place] [phone] Chart Prep Social History Tobacco Use Types [...] encounter Miscellaneous Notes * Telephone Encounter - Divya Diallo [place] - 04/17/2025 3:30 PM EST Chart Prep Labs: done Images: not applicable Referrals: complete Vaccines due: Covid and RSV Screenings: eye exam and foot exam Overdue care gaps: A1c, Glucose, and Tobacco documented in this encounter Plan of Treatment Upcoming Encounters Date Type Department Care Team (Late st Contact Info) Description 04/20/2025 9:15 AM EST Office Visit [facility] [address] [place] [address] Hoda Sal FNP [address] [place] [address] 05/21/2025 10:30 AM EST Medication Management [facility] [address] [place] [address] Brittnee Kline, ChapinD [address] [place] [address] documented as of this encounter Goals Goal Patient Goal Type Associated Problems Recent Progress Patient-Stated? Author Help patients manage their type 2 diabetes Care Plan Help patients manage their type 2 diabetes No Divya Diallo MA Weekly blood pressure task Care Plan Weekly blood pressure task No Divya Diallo MA Help patients manage their type 2 diabetes Care Plan Help patients manage their type 2 diabetes Divya Kinsey MA Patient has chronic kidney disease Care Plan Patient has chronic kidney disease No Divya Diallo MA Weekly blood pressure task Care Plan Weekly blood pressure task No Divya Diallo MA Patient has chronic kidney disease Care Plan Patient has chronic kidney disease No Divya Diallo MA documented as of this encounter Visit Diagnoses Not on filedocumented in this encounter Additional Health Concerns Active Problems Noted Date Diagnosed Date Help patients manage their type 2 diabetes 04/17 Weekly blood pressure task 04/17/2025 Help patients manage their type 2 diabetes 04/17 Patient has chronic kidney disease 04/17/2025 Weekly blood pressure task 04/17/2025 Patient has chronic kidney disease 04/17/2025 Assessment Noted Time PHQ-9 Depression Total Score: 2 01/27/20 25 9:41 AM EDT documented as of this encounter Care Teams Manager Recruitment Relationship Specialty Start Date End Date Hoda Sal FNP [address] [place] [phone] PCP - General Family Medicine 12/29/21 Manuel Martinez [address] [place] [address] [address] [place] [address] Cardiology 11/10/24 documented as of this encounter
--- OUTSIDE RECORDS SUMMARY | 2025-04-17 21:44 | XMS_ITS | Encounter Summary ---
Author Organization [employer] Address [address] [facility] 7t [place] [address] Care Team Providers Care Diamond Merchant Name Role Phone Maria DHoda forman NICOLE Primary Care Provider [phone] Manuel Martinez Unavailable Encounter Details Date Type Department Care Team (Latest Contact Info) Description 04/17/2025 Travel Social History Tobacco Use Types Packs/Day [...] Description 04/20/2025 9:15 AM EST Office Visit [facility] [address] [place] [address] Hoda Sal FNP [address] [place] [address] 05/21/2025 10:30 AM EST Medication Management [facility] P[facility] [address] [place] [address] Brittnee Kline, PharmD [address] [place], [place] [phone] documented as of this encounter Goals Goal [...] Care Plan Patient has chronic kidney disease Divya Kinsey MA documented as of this encounter Visit [...] documented as of this encounter Care Teams Diamond Merchant Relationship Specialty Start Date End Date Hoda Sal FNP [address] [place] [phone] PCP - General Family Medicine 12/29/21 Manuel Martinez [address] [place] [address] 3rd [place] [address] Cardiology 11/10/24 documented as of this encounter
--- OUTSIDE RECORDS SUMMARY | 2025-04-17 21:44 | XMS_ITS | Encounter Summary ---
Author Organization [employer] Address [address] [facility] 7t [place] [address] Care Team Providers Care Specimen Transporter Name Role Phone Hoda Sal Primary Care Provider [phone] Manuel Martinez Unavailable Reason for Visit * Reason Comments Med Refill Encounter Details Date Type Department Care Team ([facility] st Contact Info) Description 10/07/2024 Refill [facility]S [address] [place], [place] [phone] Hoda Sal FNP [address] [place] [address] Mixed hyperlipidemia Social History Tobacco Use Types [...] Description 04/20/2025 9:15 AM EST Office Visit [facility] [address] [place] [address] Hoda Sal FNP [address] [place] [address] 05/21/2025 10:30 AM EST Medication Management [facility] [address] [place] [address] Brittnee Kline, PharmD [address] [place] [address] documented as of this encounter Visit Diagnoses Diagnosis Mixed hyperlipidemia documented in this encounter Care Teams Specimen Transporter Relationship Specialty Start Date End Date Hoda Sal FNP [address] [place] [address] PCP - General Family Medicine 12/29/21 Manuel Martinez [address] [place] [address] Drive 3rd [place] [address] Cardiology 11/10/24 documented as of this encounter
--- OUTSIDE RECORDS SUMMARY | 2025-04-17 21:44 | XMS_ITS | Encounter Summary ---
Author Organization [employer] Address [address] [place] [address] Care Team Providers Care Mobile Developer Name Role Phone Hoda Sal Primary Care Provider [phone] Manuel Martinez Unavailable Encounter Details Date Type Department Care Team ([facility] st Contact Info) Description 02/09/2025 Results Follow-Up [facility] [address], [place] [id number] Hoda Sal FNP [address] [place] [address] POCT A1c, POCT glucose manually resulted, Albumin, Random Urine W/Creatinine, Additional followed-up results: 9 Social History Tobacco Use Types Packs/Day Years [...] 04/20/2025 9:15 AM EST Office Visit [facility] [address] [place] [address] Hoda Sal FNP [address] [place] [address] 05/21/2025 10:30 AM EST Medication Management [facility] [address] [place] [address] Brittnee Kline, PharmD [address] [place] [address] documented as of this encounter Visit Diagnoses Not on filedocumented in this encounter Additional Health Concerns Assessment Noted Time PHQ-9 Depression Total Score: 2 01/27/20 9:41 AM EDT documented as of this encounter Care Teams Mobile Developer Relationship Specialty Start Date End Date Hoda Sal FNP [address] [place] [address] PCP - General Family Medicine 12/29/21 Manuel Martinez [address] [place] [address] Cardiology 11/10/24 documented as of this encounter
--- OUTSIDE RECORDS SUMMARY | 2025-04-17 21:44 | XMS_ITS | Clinical Summary ---
Author Organization [employer] Address [address] [facility] [address] [place] [address] Care Team Providers Care Solids Control Technician Name Role Phone Maria DHoda forman NICOLE Primary Care Provider [phone] JuanDustyr Unavailable Allergies Active Allergy Reactions Criticality [...] complication, without long-term current use of insulin (HCC) 1 each by Other route every 12 (twelve) hours. 100 each 11 05/11/19 24 Active omega-3 acid ethyl esters (Lovaza) 1 g capsuleIndication s:Mixed hyperlipidemia Take 1 capsule (1 g) by mouth in the morning. 90 capsule 3 05/11/19 24 Active Lancets miscIndications:T ype 2 diabetes mellitus without complication, without long-term current use of insulin (HCC) 1 each 2 times daily. 180 each 3 05/11/19 24 Active Alcohol Swabs padsIndications:T ype 2 diabetes mellitus without complication, without long-term current use of insulin ([facility]) 1 each 2 times daily. 100 each 11 05/11/19 24 Active Jardiance 25 MGIndications:Typ e 2 diabetes mellitus without complication, without long-term current use of insulin ([facility]) TAKE 1 TABLET BY MOUTH ONCE DAILY IN THE MORNING FOR DIABETES 90 tablet 3 05/19/19 25 Active atorvastatin (Lipitor) 40 MG tabletIndications :Mixed hyperlipidemia Take 1 tablet (40 mg) by mouth at bedtime. (Cholesterol ) 90 tablet 3 11/01/19 25 Active glipiZIDE XL (Glucotrol XL) 10 MG 24 hr tabletIndications :Type 2 diabetes mellitus without complication, without long-term current use of insulin ([facility]) TAKE 1 TABLET BY MOUTH ONCE DAILY WITH BREAKFAST FOR DIABETES 90 tablet 3 11/01/19 25 Active lisinopril-hydroC HLOROthiazide 20-25 MG tabletIndications :Essential hypertension TAKE 1 TABLET BY MOUTH ONCE DAILY FOR HIGH BLOOD PRESSURE 90 tablet 3 11/01/19 25 Active metFORMIN XR (Glucophage-XR) 500 MG 24 hr tabletIndications :Type 2 diabetes mellitus without complication, without long-term current use of insulin ([facility]) TAKE 2 TABLETS BY MOUTH WITH BREAKFAST AND 2 TABLETS WITH EVENING MEAL 360 tablet 3 11/01/19 25 Active amLODIPine (Norvasc) 5 MG tabletIndications :Essential hypertension Take 1 tablet (5 mg) by mouth Once per day. 30 tablet 11 03/09/20 25 026 Active carvedilol (Coreg) 6.25 MG tabletIndications :Type 2 diabetes mellitus without complication, without long-term current use of insulin ([facility]) TAKE 1 TABLET BY MOUTH TWICE DAILY. MUST TAKE WITH A MEAL/FOOD 180 tablet 1 03/23/20 25 Active carvedilol (Coreg) 6.25 MG tabletIndications :Type 2 diabetes mellitus without complication, without long-term current use of insulin ([facility]) TAKE 1 TABLET BY MOUTH TWICE DAILY MUST TAKE WITH A MEAL/FOOD 180 tablet 2 05/27/19 25 025 Discontinued Tirzepatide (Mounjaro) 5 MG/0.5ML solution auto-injectorIndi cations:Type 2 diabetes mellitus without complication, without long-term current use of insulin ([facility]),Obstructive sleep apnea syndrome,Severe obesity (BMI >= 40) ([facility]/HCC) (HCC) Inject 5 mg under the skin every 7 (seven) days AND 5 mg every 7 (seven) days. 2 mL 1 03/09/20 25 025 Active Problems Problem Noted Date Diagnosed Date Mild dilation of ascending aorta 01/26/2025 Healthcare maintenance 05/11/2023 Overview (01/25/2025): Last PE: 05/11/23 PSA: pending Colonoscopy: 04/29/24 at [facility] (Dr. Santo). Repeat 5 years d/t tubular adenoma Essential hypertension 05/30/2022 Overview (01/25/2025): -Following with [facility] Cards -Continues lisinopril-hydrochlorothiazide 20-25mg daily -Continues Carvedilol 6.25mg BID -Continue monitoring at home, with goal <130/80 mmHg -TTE August 2022: EF 65-70% Encourage lifestyle interventions including: Low fat diet rich in fruits and vegetables Maintaining healthy weight Limiting dietary sodium with a goal <1500mg/day Increasing activity with goal of 150 mins of aerobic exercise per week Reviewed ED precautions Assessment & Plan (01/26/2025 3:37 PM EDT): - Hypertension is well controlled at home, Continue current management and home monitoring. Assessment & Plan (11/10/2024 10:36 AM EDT): [...] to follow up appt Hyperlipidemia 05/30/2022 Overview (01/26/2025): Lab Results Component Value Date TRIG 428 (H) 01/26/2025 TRIG 389 (H) 01/15/2024 TRIG 474 (H) 04/24/2023 TRIG 1,126 (H) 05/31/2022 -No known history of pancreatitis -Following with [facility] Cards - Dr. Martinez. -Unable to tolerate SE rosuvastatin (dizziness) -Cont atorvastatin 40mg daily and omega-3 through Cards -Encouraged dietary modifications, monitor for signs of pancreatitis and other ED precautions. Assessment & Plan (01/26/2025 3:38 PM EDT): - Cont with current therapy Assessment & Plan (11/10/2024 10:36 AM EDT): - Cont with current therapy Assessment & Plan (09/03/2023 8:33 AM EDT): Continue with medication, recheck lipids Assessment & Plan (06/01/2022 12:43 PM EST): Continue with medication, recheck lipids Mild intermittent asthma 05/30/2022 Assessment & Plan (05/17/2023 5:17 PM EST): Well controlled, using albuterol <2x/week Cont albuterol PRN Obstructive sleep apnea syndrome 03/10/2021 Assessment & Plan (01/26/2025 3:42 PM EDT): -Previously with CPAP nightly, due for titration study -Titration study order sent 05/17/23 -Titration study order re-sent on 11/10/24 -Persistent snoring and difficulty tolerating CPAP due to mask discomfort and sensation of dyspnea. Sleep study not completed due to scheduling and insurance issues. - Will follow up with diagnostic PA specialists Assessment & Plan (11/10/2024 10:38 AM EDT): [...] BID -Empagliflozin 25mg daily -Glipizide 10mg daily -START Mounjaro 2.5mg subcutaneous weekly Assessment & Plan (01/26/2025 3:42 PM EDT): - A1c above goal, although improving - Cont lifestyle interventions - Start Mounjaro 2.5mg subcutaneous weekly. No known history of pancreatitis, denies known personal or family history of MTC or MEN2 Assessment & Plan (11/10/2024 10:37 AM EDT): [...] at this time and increase lifestyle interventions Resolved Problems Problem Noted Date Diagnosed Date Resolved Date Chest pain 01/26/2025 01/26/2025 HEADLEY (dyspnea on exertion) 01/26/2025 Fatigue 01/26/2025 01/26/2025 Gastroenteritis 01/26/2025 01/26/2025 Obesity with body mass index 30 or greater 01/26/2025 01/26/2025 Snoring 01/26/2025 01/26/2025 Hypertension 01/26/2025 01/26/2025 Pre-operative cardiovascular examination 01/26/2025 01/26/2025 Diabetes mellitus 01/26/2025 01/26/2025 Type 2 diabetes mellitus 01/26/2025 Encounters Date Type Department Care Team Description 04/17/2025 Telephone [facility] [address] [place] [address] Hoda Sal FNP Chart Prep 04/17/2025 Travel 03/22/2025 Refill [facility] [address] [place] [address] Hoda Sal FNP Type 2 diabetes mellitus without complication, without long-term current use of insulin ([facility]) 03/09/2025 9:15 AM EST Office Visit [facility] [address] [place] [address] Patricio Gastelum MD Essential hypertension (Primary Dx); Type 2 diabetes mellitus without complication, without long-term current use of insulin (HCC); Obstructive sleep apnea syndrome; Severe obesity (BMI >= 40) ([facility]/HCC) (HCC); Encounter for immunization 03/09/2025 Travel 03/08/2025 Travel 02/09/2025 Telephone [facility] [address] [place] [address] Hoda Sal FNP 02/09/2025 Results Follow-Up [facility] [address] [place] [address] Hoda Sal FNP POCT A1c, POCT glucose manually resulted, Albumin, Random Urine W/Creatinine, Additional followed-up results: 9 01/26/2025 9:15 AM EDT Office Visit [facility] [address] [place] [address] Hoda Sal FNP Essential hypertension (Primary Dx); Mixed hyperlipidemia; Dietary counseling; Exercise counseling; Healthcare maintenance; Type 2 diabetes mellitus without complication, without long-term current use of insulin ([facility]); Obstructive sleep apnea syndrome 01/26/2025 Travel 01/23/2025 Telephone [facility] [address] [place] [address] Hoda Sal FNP Chart Prep from Last 3 Months Immunizations Immunization Administration Dates Next Due Hep B, adult 06/24/2021,02/18/2021,12/15/2020 Influenza Injectable Quadriv alant Preservative Free IIV4 MDCK 02/18/2021 Influenza injectable quadriv alent preservative free 05/11/2023 Influenza, seasonal, injecta ble, preservative free 03/09/2025 Pfizer Covid-19 Vaccine 12+ 05/11/2023 Pneumococcal Conjugate [...] Sign Reading Time Taken Comments Blood Pressure 165/90 03/09/2025 9:23 AM EST Pulse 76 03/09/2025 9:23 AM EST Temperature 36.7 C (98.1 F) 01/26/2025 9:35 AM EDT Respiratory Rate 20 03/09/2025 9:23 AM EST Oxygen Saturation 97% 03/09/2025 9:23 AM EST Inhaled Oxygen Concentration - - Weight 127 kg (279 lb) 03/09/2025 9:23 AM EST Height 177.8 cm (5' 10 ) 03/09/2025 9:23 AM EST Body Mass Index 40.03 03/09/2025 9:23 AM EST Plan of Treatment Upcoming Encounters Date Type Department Care Team (Late st Contact Info) Description 04/20/2025 9:15 AM EST Office Visit [facility] [address], [place] [phone] Hoda Sal, AGRICULTURAL RESEARCH TECHNOLOGIST [address] [place] [address] 05/21/2025 10:30 AM EST Medication Management [facility] [address], [place] [phone] Brittnee Kline, PharmD [address] [place] [address] Health Maintenance Due Date Last Done Comments CT Colonography 1970 FIT DNA/Cologuard 1970 FIT 1970 FOBT 1970 Sigmoidoscopy 1970 Diabetes: Foot Exam 01/07/1980 Eye Exam 01/07/1980 RSV Patients and Patients Aged 60 years or older (1 - Risk 50-74 years 1-dose series) 01/07/2020 COVID-19 Vaccine ( season) 2025 05/11/2023, 06/17/2021, 08/09/2020, Additional history exists Diabetes: Hemoglobin A1C 04/27/2025 025, 10/31/2024, 09/03/2023, Additional history exists Alcohol/Substance Use Screening 01/26/2026 01/26/2025 Depression Screening 01/26/2026 01/26/2025, 01/27/20 25 Diabetes: Urine Protein Screening 01/26/2026 01/26/2025, 11/12/2020 Lipid Panel 01/26/2026 01/26/2025, 01/05, 09/27/2023, Additional history exists SDOH Screening 01/26/2026 01/26/2025 Disability Screening 03/08/2026 03/08/2025 Tobacco Screening 03/09/2026 03/09/2025 Colonoscopy 04/29/2029 04/29/2024 Colorectal Cancer Screening 04/29/2029 DTaP/Tdap/Td Vaccines (3 - Td or Tdap) 12/15/2030 12/15/2020, 06/12/2018 Zoster Vaccines Completed 01/14/2021, 11/12/2020 Hepatitis B Vaccines Completed 06/24/2021, 02/18/2021, 12/15/2020 Pneumococcal Vaccine: 50+ Years Completed 05/11/2023, 07/26/2021, 12/11/2018 HIV Screening Completed 01/26/2025, 05/31/2022 Hepatitis C Screening Completed 01/26/2025, 023 Influenza Vaccine Completed 03/09/2025, , 02/18/2021 HIB Vaccines Aged Out No longer eligi [...] on patient's age to complete this topic Goals Goal Patient Goal Type Associated Problems [...] type 2 diabetes No Divya Diallo [place] Patient has chronic kidney disease Care Plan Patient has chronic kidney disease No Divya Diallo MA Weekly blood pressure task Care Plan Weekly blood pressure task No Divya Diallo MA Patient has chronic kidney disease Care Plan Patient has chronic kidney disease No Divya Diallo MA Procedures Procedure Name Priority Date/Time Associated Diagnosis Comments POCT GLUCOSE Routine 03/09/2025 10:13 AM EST Type 2 diabetes mellitus without complication, without long-term current use of insulin (HCC) CHLAMYDIA/TRICHOMONAS/ NEISSERIA GONORRHOEAE, PCR, URINE Routine 01/26/2025 10:34 AM EDT Healthcare maintenance ALBUMIN, RANDOM URINE W/CREATININE Routine 01/26/2025 10:34 AM EDT Type 2 diabetes mellitus without complication, without long-term current use of insulin (CMS/HCC) VITAMIN B12 Routine 01/26/2025 10:18 AM EDT Type 2 diabetes mellitus without complication, without long-term current use of insulin (CMS/HCC) HIV 1/2 ANTIGEN/ANTIBODY, FOURTH GENERATION W/RFL Routine 01/26/2025 10:18 AM EDT Type 2 diabetes mellitus without complication, without long-term current use of insulin (CMS/HCC) RPR (MONITOR) W/REFL TITER Routine 01/26/2025 10:18 AM EDT Type 2 diabetes mellitus without complication, without long-term current use of insulin (CMS/HCC) HEPATITIS C VIRAL RNA, QUANTITATIVE, REAL-TIME PCR Routine 01/26/2025 10:18 AM EDT Type 2 diabetes mellitus without complication, without long-term current use of insulin (CMS/HCC) CBC WITH AUTO DIFFERENTIAL Routine 01/26/2025 10:18 AM EDT Type 2 diabetes mellitus without complication, without long-term current use of insulin (CMS/HCC) COMPREHENSIVE METABOLIC PANEL Routine 01/26/2025 10:18 AM EDT Type 2 diabetes mellitus without complication, without long-term current use of insulin (CMS/HCC) TSH W/REFLEX TO FT4 Routine 01/26/2025 1 0:18 AM EDT Type 2 diabetes mellitus without complication, without long-term current use of insulin (CMS/HCC) LIPID PANEL, STANDARD Routine 01/26/2025 10:18 AM EDT Type 2 diabetes mellitus without complication, without long-term current use of insulin ([facility]) POCT GLUCOSE Routine 01/26/2025 9:37 AM EDT Type 2 diabetes mellitus without complication, without long-term current use of insulin ([facility]) POCT GLYCATED HEMOGLOBIN, TOTAL Routine 01/26/2025 9:37 AM EDT Type 2 diabetes mellitus without complication, without long-term current use of insulin ([facility]) HM COLONOSCOPY Routine 04/29/2024 3:31 PM EST from Last 3 Months or Most Recently Relevant to Health Maintenance Results * POCT Glucose (03/09/2025 10:13 AM EST) Only the most recent of2 resultswithin the time period is included. Glucose Blood, POC 190 60 - 200 mg/dL QC Media Lot # [id number] Lot# Expiration Date Comment:random Blood Capillary blood specimen / Unknown 03/09/2025 10:13 AM EST Patricio Gastelum MD POINT OF CARE TEST ENTER/ED IT ORDERABLES Final Result * Chlamydia/Trichomonas/Neisseria gonorrhoeae, PCR, Urine (01/26/2025 10:34 AM EDT) Pathologist [facility] CT PCR, Urine NOT DETECTED Not Detect. [facility] Comment:A not detected test result does not exclude the possibilityof infection because test results can be affected byimproper specimen collection, concurrent antibiotic therapy,or the number of organisms in the specimen which may bebelow the sensitivity of the test. As with many diagnostictests, results from the Xpert CT/NG assay should beinterpreted in conjunction with other laboratory andclinical data available to the clinician.The Xpert CT/NG assay should not be used for the evaluationof suspected sexual abuse or for other medico-legalindications. Additional testing is recommended in anycircumstance when false positive or false negative resultscould lead to adverse medical, social or psychologicalconsequences. NG PCR, Urine NOT DETECTED Not Detect. [facility] Comment:A not detected test result does not exclude the possibilityof infection because test results can be affected byimproper specimen collection, concurrent antibiotic therapy,or the number of organisms in the specimen which may bebelow the sensitivity of the test. As with many diagnostictests, results from the Xpert CT/NG assay should beinterpreted in conjunction with other laboratory andclinical data available to the clinician.The Xpert CT/NG assay should not be used for the evaluationof suspected sexual abuse or for other medico-legalindications. Additional testing is recommended in anycircumstance when false positive or false negative resultscould lead to adverse medical, social or psychologicalconsequences. Urine (Urine, Random) 01/26/2025 10:34 AM EDT 01/26/2025 2:19 PM EDT [employer] LAB URINE ORDERABLES Final Res ult Performing Organization Address [facility] de Phone Number [facility] [address] [place] [address] [phone] * Albumin, Random Urine W/Creatinine (01/26/2025 10:34 AM EDT) Creatinine, Urine 59.15 mg/dL [facility] Microalbumin Urine 14.0 mg/L [facility] Microalbum Creatinine Ratio Ur 23.6 <30 ug/mg cr [facility] Comment:Albumin/Creatinine R atio Reference Ranges: Normal: < 30 ug/mg creatinine Microalbuminuria: 30 - 300 ug/mg creatinineClinical Albuminuria: > 300 ug/mg creatinine Urine 01/26/2025 10:3 4 AM EDT 01/26/2025 2:15 PM EDT [employer]oda [employer] LAB URINE ORDERABLES Final Res ult Performing Organization Address [facility]/ZIP Co de Phone Number [facility] [address] [place] [phone] * TSH with Reflex to Free T4 (01/26/2025 10:18 AM EDT) Pathologist [facility] TSH reflex Free T4 3.00 0.32 - 4.0 uIU/mL [facility] Blood 01/26/2025 10:1 8 AM EDT 01/26/2025 2:14 PM EDT Hoda Sal AGRICULTURAL RESEARCH TECHNOLOGIST LAB BLOOD ORDERABLES Final Res ult Performing Organization Address [facility]/ZIP Co de Phone Number [facility] [address] [place] [phone] * Hepatitis C Viral RNA, Quantitative, Real-Time PCR (01/26/2025 10:18 AM EDT) Pathologist [facility] Hepatitis C Viral Load <15 NOT DETECTED NOT DETECTED IU/mL [facility] HCV Log PCR <1.18 NOT DETECTED NOT DETECTED Log IU/mL [facility] Comment:For additional infor mation, please refer [email or web address].[email or web address]/LXT44s8(This link is being provided for informational/educational purposes only.)THIS TEST WAS PERFORMED AT:[employer] [place] [phone] PATRICK MD Blood 01/26/2025 10:1 8 AM EDT 01/26/2025 2:14 PM EDT Hoda Sal AGRICULTURAL RESEARCH TECHNOLOGIST LAB BLOOD ORDERABLES Final Res ult Performing Organization Address [facility]/ZIP Co de Phone Number [facility] [address] [place] [phone] * (ABNORMAL) CBC auto differential (01/26/2025 10:18 AM EDT) Pathologist [facility] White Blood Count 7.3 4.8 - 10.8 X10*3/uL [facility] Red Blood Count 5.81(H) 4.60 - 5.80 X10*6/uL [facility] Hemoglobin 14.5 14.0 - 18.0 g/dl [facility] Hematocrit 45.3 42.0 - 52.0 % [facility] Mean Corpuscular Volume 78.0(L) 80.0 - 98.0 fL [facility] Mean Corpuscular Hemoglobin 25.0(L) 27.0 - 33.0 pg [facility] Mean Corpuscular HGB Conc 32.0 31.0 - 36.0 g/dl [facility] Red Cell Distribution Width 15.9 11.0 - 16.0 % [facility] Platelet Count 220 160 - 400 X10*3/uL [facility] Mean Platelet Volume 10.7 9.4 - 12.4 fL [facility] Neutrophils Percent Auto 65.4 45 - 73 % [facility] Imm Gran Pct Auto 0.7(H) 0.0 - 0.4 % [facility] Lymphocytes Percent Auto 25.1 20 - 40 % [facility] Monocytes Percent Auto 5.2 2 - 11 % [facility] Eosinophils Percent Auto 2.6 0 - 4 % [facility] Basophils Percent Auto 1.0 0 - 2 % [facility] NRBC Pct Auto 0.0 0.0 - 0.2 /100WBC [facility] Neutrophils Absolute Auto 4.8 2.0 - 8.3 x10*3/uL [facility] Imm Gran Abs Auto 0.05(H) 0.00 - 0.03 X10*3/uL [facility] Lymphocytes Absolute Auto 1.8 1.2 - 4.9 X10*3/uL [facility] Monocytes Absolute Auto 0.4 0.1 - 1.2 X10*3/uL [facility] Eosinophils Absolute Auto 0.2 0.0 - 0.4 X10*3/uL [facility] Basophils Absolute Auto 0.1 0.0 - 0.2 X10*3/uL [facility] NRBC Abs Auto 0.000 0.0 - 0.012 X10*3/uL [facility] Blood Venous blood specimen / Unknown 01/26/2025 10:18 AM EDT 01/26/2025 2:14 PM EDT us Hoda Sal AGRICULTURAL RESEARCH TECHNOLOGIST LAB BLOOD ORDERABLES Final Res ult Performing Organization Address [facility]/ZIP Co de Phone Number [facility] [address] [place] [address] [phone] * RPR (Monitor) with Reflex to??Titer (01/26/2025 10:18 AM EDT) RPR (Monitor) w/Refl Titer NON-REACTI VE NON-REACT CANDE [facility] Comment:THIS TEST WAS PERFOR MED AT:[employer] [place] [phone] PATRICK MD Rapid Plasma Reagin Ab Titer TNP [facility] Blood Venous blood specimen / Unknown 01/26/2025 10:18 AM EDT 01/26/2025 2:14 PM EDT Hoda Sal AGRICULTURAL RESEARCH TECHNOLOGIST LAB BLOOD ORDERABLES Final Res ult Performing Organization Address [facility] Co de Phone Number [facility] [address] [place] [phone] [phone] * HIV-1/2 Antigen and Antibodies, Fourth Generation, with Reflexes (01/26/2025 10:18 AM EDT) HIV AB/AG Nonreactive Nonreactive [facility] Comment:HIV-1 p24 Ag and/or HIV-1/HIV-2 Ab not detected.A test result that is nonreactive does not exclude thepossibility of exposure to or infection with HIV-1 and/orHIV-2. Nonreactive results in this assay for individualswith prior exposure to HIV-1 and/or HIV-2 may be due toantigen and antibody levels that are below the limit ofdetection of this assay.The [employer] HIV Ag/Ab Combo assay result andsupplemental assay results should be interpreted inconjunction with the patient's clinical presentation,history and other laboratory results. If the results areinconsistent with clinical evidence, additional testing issuggested to confirm the result. Blood Venous blood specimen / Unknown 01/26/2025 10:18 AM EDT 01/26/2025 2:14 PM EDT Hoda Sal [facility] LAB BLOOD ORDERABLES Final Res ult Performing Organization Address [facility]/ZIP Co de Phone Number [facility] [address] [place] [phone] * Vitamin B12 (01/26/2025 10:18 AM EDT) Vitamin B12 612 200 - 900 pg/mL [facility] Comment:NORMAL 200-900 PG/ML INDETERMINATE 160-199 PG/ML DEFICIENT < 160 PG/ML Blood Venous blood specimen / Unknown 01/26/2025 10:18 AM EDT 01/26/2025 2:14 PM EDT Hoda Sal [facility] LAB BLOOD ORDERABLES Final Res ult Performing Organization Address [facility] Co de Phone Number [facility] [address] [place] [phone] * (ABNORMAL) Lipid Panel, Standard (01/26/2025 10:18 AM EDT) Triglycerides 428(H) <150 mg/dL [facility] Comment:Desirable Triglyceri de: less than 150 mg/dLBorderline High Triglyceride 150-199 mg/dLHigh Triglyceride: 200-499 mg/dLVery High Triglyceride: greater than or equal to 5OO mg/dL Cholesterol 161 <200 mg/dL [facility] Comment:Desirable Cholestero l: less than 200 mg/dLBorderline High Cholesterol: 200-239 mg/dLHigh Cholesterol: greater than 239 mg/dL LDL Cholesterol Calculated TNP <100 mg/dL [facility] Comment:Unable to calculate the LDL. The formula of Friedwald,Lomax, and Satnam is only valid if the triglycerides areless than 400 mg/dl. HDL Cholesterol 27(L) >40 mg/dL [facility] Comment:Desirable HDL: great er than 40 mg/dL Note: This HDL assay may give artificially low results in patients with liver disease. Blood Venous blood specimen / Unknown 01/26/2025 10:18 AM EDT 01/26/2025 2:14 PM EDT us Hoda Sal AGRICULTURAL RESEARCH TECHNOLOGIST LAB BLOOD ORDERABLES Final Res ult [facility] [facility] [address] [place] [address] [phone] * (ABNORMAL) Comprehensive Metabolic Panel (01/26/2025 10:18 AM EDT) Sodium 136 135 - 145 mmol/L [facility] Potassium 4.1 3.3 - 5.1 mmol/L [facility] Chloride 101 96 - 108 mmol/L [facility] Carbon Dioxide 27 22 - 29 mmol/L [facility] Anion Gap 12 12 - 20 [facility] Urea Nitrogen (BUN) 19(H) 9 - 16 mg/dL [facility] Creatinine, Serum 0.96 0.5 - 1.4 mg/dL [facility] Estimated Glomerular Filt Rate >60 [facility] Comment:Chronic Kidney Disea se: Estimated GFR < 60 mL/min/[id number] Kidney Disease: Estimated GFR < 15 mL/min/1.73m2 Glucose 200(H) 60 - 115 mg/dL [facility] Calcium 9.6 8.4 - 10.2 mg/dL [facility] Bilirubin, Total 0.7 0.0 - 1.0 mg/dL [facility] Aspartate Amino Transferase 35 5 - 37 U/L [facility] Alanine Aminotransferase 54(H) 0 - 40 U/L [facility] Total Protein 8.0 6.5 - 8.0 g/dL [facility] Albumin Level 4.8 3.5 - 5.0 g/dL [facility] Alkaline Phosphatase 59 39 - 117 U/L [facility] Blood Venous blood specimen / Unknown 01/26/2025 10:18 AM EDT 01/26/2025 2:14 PM EDT Hodanikhil Sal AGRICULTURAL RESEARCH TECHNOLOGIST LAB BLOOD ORDERABLES Final Res ult [facility] [address] [place] [address] [phone] * (ABNORMAL) POCT A1c (01/26/2025 9:37 AM EDT) Hemoglobin A1C 10.0(A) 4.0 - 5.7 % QC Media Lot # Comment:[id number] Lot# Expiration Date Comment:08/11/2026 Blood 01/26/2025 9:37 AM EDT Hoda Phaldickson AGRICULTURAL RESEARCH TECHNOLOGIST POINT OF CARE TEST ENTER/EDIT ORDERABLES Final Result * Hm Colonoscopy (04/29/2024 3:31 PM EST) Historical Provider MD HEALTH MAINTENANCE Final Result from Last 3 Months or Most Recently Relevant to Health Maintenance Additional Health Concerns Active Problems Noted Date Diagnosed Date Help patients manage their type 2 diabetes 04/17 Weekly blood pressure task 04/17/2025 Help patients manage their type 2 diabetes 04/17 Patient has chronic kidney disease 04/17/2025 Weekly blood pressure task 04/17/2025 Patient has chronic kidney disease 04/17/2025 Insurance [facility] 3 Care Teams Solids Control Technician Relationship Specialty Start Date End Date Hoda Sal FNP [address] [place] [id number] PCP - General Family Medicine 12/29/21 Manuel Martinez [address] [place] [address] [address] [place] [address] Cardiology 11/10/24
--- OUTSIDE RECORDS SUMMARY | 2025-04-17 21:44 | XMS_ITS | Clinical Summary ---
Author Organization 175 [facility] Address [address] [place] [address] Phone Care Team Providers Care Bunghole Borer Name Role Phone Physician, Pcp Unknown Primary Care Provider Telma vailable Allergies Active Allergy Reactions Criticality Noted Date Comments Aspirin Hives High 07/23/2020 Other reaction(s): Facial swelling, Hives / Skin Rash Cortisone Hives High 07/23/2020 Other reaction(s): Swollen ear canal following topical drops Medications Jardiance 25 mg tablet TAKE 1 TABLET BY MOUTH ONCE DAILY IN THE MORNING FOR DIABETES Active glipiZIDE (GLUCOTROL XL) 10 mg 24 hr tablet TAKE 1 TABLET BY MOUTH ONCE DAILY WITH BREAKFAST FOR DIABETES Active lisinopril-hydr oCHLOROthiazide (PRINZIDE,ZESTO RETIC) 20-25 mg per tablet Take 1 tablet by mouth 1 (one) time each day. Active metFORMIN XR (GLUCOPHAGE-XR) 500 mg 24 hr tablet TAKE 2 TABLETS BY MOUTH WITH BREAKFAST AND 2 TABLETS WITH EVENING MEAL Active omega-3 acid ethyl esters (LOVAZA) 1 gram capsule Take 1 capsule (1 g total) by mouth 1 (one) time each day. Active ketoconazole (NIZORAL) 2 % cream Apply topically 1 (one) time each day. 30 g 2 Active Encounters Date Type Department Care Team Description 04/07/2025 9:15 AM EST Office Visit Orthopedic Surgery [facility] [address] [phone] Moiz Simpson, DPM Dermatophytosis of nail (Primary Dx); Ingrowing nail; Pain in toe of right foot; Pain in toe of left foot; Diabetic mononeuropathy simplex ([facility] V24, [facility] V28); Type II diabetes mellitus with peripheral circulatory disorder (CMS/HCC V24, CMS/HCC V28); Abscess, toe, right 02/10/2025 Telephone Orthopedic Surgery [facility] [address] [phone] Moiz Simpson DPM 02/05/2025 9:15 AM EDT Consult Orthopedic [facility] [address] [phone] Moiz Simpson DPM Diabetic mononeuropathy simplex ([facility] V24, [facility] V28) (Primary Dx); Dermatophytosis of nail; Ingrowing nail; Pain in toe of right foot; Pain in toe of left foot; Type II diabetes mellitus with peripheral circulatory disorder ([facility] V24, [facility] V28) from Last 3 Months Social History Tobacco Use Types Packs/Day Years Used Date Smoking Tobacco: Never Assessed Sex and Gender Information Value Date Recorded Sex Assigned at Male 02/05/2025 9:04 AM EDT Legal Sex Male 8:12 AM EDT Gender Identity Male 02/05/2025 9:04 AM EDT Sexual Orientation Straight 02/05/2025 9: 04 AM EDT Plan of Treatment Upcoming Encounters Date Type Department Care Team (Late st Contact Info) Description 07/09/2025 9:45 AM EST Office Visit Orthopedic Surgery [facility] [address] [phone] Moiz Simpson DPM [address] [phone] Health Maintenance Due Date Last Done Comments Colorectal Cancer Screening: Colonoscopy 1970 Diabetes: Annual Foot Exam 01/07/1980 Diabetes: Annual Retina Eye Exam 01/07/1980 RSV Immunization Adult Patients (1 - Risk 50-74 years 1-dose series) 01/07/2020 Depression Screening 05/07/2024 Hepatitis C Screening 11/12/2024 Social Influencers of Health Screening 11/12/2024 COVID-19 Vaccine ( season) 2025 05/11/2023, 06/17/2021, 08/09/2020, Additional history exists Diabetes: Annual Urine Albumin-Creatinine Ratio (uACR) 02/05/2025 Diabetes: Blood Sugar Control Test (HGBA1C) 07/26/2025 01/26/2025 Diabetes: Annual GFR (Glomerular Filtration Rate) 01/26/2026 01/26/2025 Hypertension/CHF/CAD Annual BMP Blood Test 01/26/2026 01/26/2025 Cholesterol Screening (Lipid Panel) 01/26/2030 01/26/2025 DTaP,Tdap,and Td Vaccines (3 - Td or Tdap) 12/15/2030 12/15/2020, 06/12/2018 Zoster Vaccines Completed 01/14/2021, 11/12/2020 Hepatitis B Vaccines Completed 06/24/2021, 02/18/2021, 12/15/2020 Pneumococcal Vaccine: 50+ Years Completed 05/11/2023, 07/26/2021, 12/11/2018 HIV Screening Completed 01/26/2025 Influenza Vaccine Completed 03/09/2025, , 02/18/2021 HIB [...] to complete this topic RSV Immunization Patients Under 20 months Aged Out No longer eligible based on patient's age to complete this topic Varicella Vaccines Aged Out No longer eligible based on patient's age to complete this topic Insurance [employer] Care Teams Bunghole Borer Relationship Specialty Start Date End Date Physician, Pcp Unknown PCP - General 11/12/24
--- OUTSIDE RECORDS SUMMARY | 2025-04-17 21:44 | XMS_ITS | Encounter Summary ---
Author Organization [employer] Address [address] [facility] 7t [place] [address] Care Team Providers Care Diagnostic Technician Name Role Phone Hoda Sal Primary Care Provider [phone] Manuel Martinez Unavailable Reason for Visit * Reason Onset Date Comments Appointment Request 12/18/2022 Encounter Details Date Type Department Care Team (Late st Contact Info) Description 12/18/2022 Telephone [facility] [address] [place] [address] Hoda Sal FNP [address] [place], [place] [phone] Appointment Request Social History Tobacco Use Types [...] TP on 12/19/2022. Please contact pt at [phone] [facility] Speaker documented in this encounter Plan of Treatment Upcoming Encounters Date Type Department Care Team (Late st Contact Info) Description 04/20/2025 9:15 AM EST Office Visit [facility] [address] [place] [address] Hoda Sal FNP [address] [place] [address] 05/21/2025 10:30 AM EST Medication Management [facility] [address] [place], [place] [phone] Brittnee Kline PharmD [address] [place] [address] documented as of this encounter Visit Diagnoses Not on filedocumented in this encounter Care Teams Diagnostic Technician Relationship Specialty Start Date End Date Hoda Sal FNP [address] [place] [address] PCP - General Family Medicine 12/29/21 Manuel Martinez [address] [place] [address] Drive 3rd [place] [address] Cardiology 11/10/24 documented as of this encounter
--- OUTSIDE RECORDS SUMMARY | 2025-04-17 21:44 | XMS_ITS | Encounter Summary ---
Author Organization [employer] Address [address] [facility] 7t [place] [address] Care Team Providers Care Size Mixer Name Role Phone Hoda Sal Primary Care Provider [phone] aMnuel Martinez Unavailable Reason for Visit * Reason Comments Med Refill Encounter Details Date Type Department Care Team ([facility] st Contact Info) Description 04/16/2023 Refill [facility] [address] [place] [address] Hoda Sal FNP [address] [place], [place] [phone] Type 2 diabetes mellitus without complication, without long-term current use of insulin ([facility]) Social History Tobacco Use Types Packs/Day Years [...] Description 04/20/2025 9:15 AM EST Office Visit [facility] [address] [place] [address] Hoda Sal FNP [address] [place] [address] 05/21/2025 10:30 AM EST Medication Management [facility] [address] [place] [address] Brittnee Kline, PharmD [address] [place] [address] documented as of this encounter Visit Diagnoses Diagnosis Type 2 diabetes mellitus without complication, without long-term current use of insulin (HCC) documented in this encounter Care Teams Size Mixer Relationship Specialty Start Date End Date Hoda Sal FNP [address] [place] [address] PCP - General Family Medicine 12/29/21 Manuel Martinez [address] [place] [address] Cardiology 11/10/24 documented as of this encounter
--- OUTSIDE RECORDS SUMMARY | 2025-04-17 21:44 | XMS_ITS | Encounter Summary ---
Author Organization [employer] Address [address] [facility] [address] [place] [address] Care Team Providers Care Telepathist Name Role Phone Maria DHoda forman NICOLE Primary Care Provider [phone] Manuel Martinez Unavailable Encounter Details Date Type Department Care Team (Late st Contact Info) Description 05/08/2024 Orders Only [facility] [address] [place], [place] [phone] ProviderNilay MD Social History Tobacco Use Types [...] Description 04/20/2025 9:15 AM EST Office Visit [facility] [address] [place] [address] Hoda Sal FNP [address] [place] [address] 05/21/2025 10:30 AM EST Medication Management [facility] [address] [place] [address] Brittnee Kline PharmD [address] [place] [address] documented as of this encounter Procedures Procedure Name Priority Date/Time Associated Diagnosis Comments HM COLONOSCOPY Routine 04/29/2024 3:31 PM EST documented in this encounter Results * Hm Colonoscopy (04/29/2024 3:31 PM EST) us Historical Provider HEALTH MAINTENANCE Final Result documented in this encounter Visit Diagnoses Not on filedocumented in this encounter Care Teams Telepathist Relationship Specialty Start Date End Date Hoda Sal FNP [address] [place] [address] PCP - General Family Medicine 12/29/21 Manuel Martinez [address]rd [place] [address] Cardiology 11/10/24 documented as of this encounter
== END ==
LOC: HO.SL 20:30
PROVIDERS: PCP Registered Nurse; Visit Provider Registered Nurse
DX: G47.33 Obstructive sleep apnea (adult) (pediatric) (principal); R06.83 Snoring
CPT/HCPCS: 95811